=== PATIENT | female | born 1960 | race Caucasian/White ===

== ENCOUNTER 2019-07-08 09:18 | Outpatient (CLI) | payer BC, SELFPAY ==
--- NOTE | ~2019-07-08 | MM_ITS ---
EXAMINATION: MM screening bonnie BI w jaed HISTORY: Screening mammogram TECHNIQUE: Craniocaudal and mediolateral oblique 3-D tomosynthesis images were obtained and synthetic 2-D images were generated. CAD analysis was submitted and interpreted. COMPARISON: 05/28/2018 BREAST PARENCHYMAL COMPOSITION: There are scattered areas of fibroglandular density. FINDINGS: The right breast is stable without evidence for malignancy. There is a new cluster of punct ate nonspecific calcifications upper outer quadrant of the left breast. IMPRESSION: 1. New cluster of punctate left breast calcifications, upper outer quadrant. 2. Magnification views are recommended. BI-RADS Category 0: Incomplete: Needs additional imaging evaluation. Reviewed, dictated and finalized at location A. [employer]
== END 2019-07-08 09:19 | disposition home or self-care (01) ==
LOC: ANHIMG 09:21
PROVIDERS: PCP Family Medicine; Visit Provider Nurse Practitioner
DX: Z12.31 Encounter for screening mammogram for malignant neoplasm of breast (principal); R92.8 Other abnormal and inconclusive findings on diagnostic imaging of breast
CPT/HCPCS: 77063; 77067

== ENCOUNTER 2019-08-04 12:47 | Outpatient (CLI) | payer BC, SELFPAY ==
--- NOTE | ~2019-08-04 | MMUS_ITS ---
EXAMINATION: MM diagnostic mammo unilat LT, US breast LT limited HISTORY: New cluster of punctate left microcalcifications, upper outer quadrant, on 07/08/2019 bilater al digital screening mammogram TECHNIQUE: Additional 3-D ML tomosynthesis images and magnification views of the left breast were per formed and synthetic 2-D images were generated. CAD analysis was submitted and interpreted. High reso lution upper outer quadrant left breast ultrasound was performed. COMPARISON: 07/08/2019 bilateral digital screening mammogram FINDINGS: MAMMOGRAPHIC FINDINGS: There is a suspicious cluster of granular appearing microcalcifications in the upper outer quadrant o f the left breast. ULTRASOUND: There is no evidence of focal abnormal solid or cystic lesion in the vicinity of the suspicious granu lar microcalcifications in the upper outer quadrant of the left breast IMPRESSION: 1. Suspicious grouped granular microcalcifications, upper outer quadrant of left breast 2. Stereotactic biopsy is recommended. BI-RADS category 4, suspicious findings. Dr. Singh telephoned the report to Dr. Klein's office voicemail on 08/04/2019 at 1405 hours. Reviewed, dictated and finalized at location A. IMPRESSION: 1. Suspicious grouped granular microcalcifications, upper outer quadrant of lef t breast 2. Stereotactic biopsy is recommended. BI-RADS category 4, suspicious findings. Dr. Singh telephoned the report to Dr. Klein's office voicemail on 08/04/2019 at 1405 hours.
== END 2019-08-04 12:48 | disposition home or self-care (01) ==
PROVIDERS: PCP Family Medicine; Visit Provider Nurse Practitioner
DX: R92.8 Other abnormal and inconclusive findings on diagnostic imaging of breast (principal)
CPT/HCPCS: 76642; 77065

== ENCOUNTER 2019-08-10 10:08 | Outpatient (CLI) | payer BC, SELFPAY ==
--- NOTE | ~2019-08-10 | MM_ITS ---
MM stereotactic specimen LT DATE: 08/10/2019 11:59 INDICATION: Stereotactic biopsy of upper outer quadrant breast microcalcifications TECHNIQUE: Digital mammographic exposure of stereotactic biopsy specimen tissue COMPARISON: 08/04/2019 diagnostic left digital mammogram FINDINGS: Numerous microcalcifications of interest are present within the specimen tissue. IMPRESSION: Successful stereotactic biopsy yielding multiple microcalcifications of interest Reviewed, dictated and finalized at Location A. Reviewed, dictated and finalized at location B. IMPRESSION: Successful stereotactic biopsy yielding multiple microcalcification s of interest
--- NOTE | ~2019-08-10 | MM_ITS ---
EXAMINATION: MM stereotactic bx LT, Specimen Radiograph, Tissue Marker Clip Placement, Unilateral Tirso mogram DATE: 08/10/2019 11:56 INDICATION: Abnormal mammogram: Suspicious grouped microcalcifications in upper outer quadrant of lef t breast. TECHNIQUE AND FINDINGS: The risks and potential benefits of the procedure were discussed with the patient and written informe d consent was obtained. Timeout procedure was performed. The patient was placed in the prone position on the dedicated stereotactic table with the left breast in craniocaudal compression, and the area o f interest was localized and targeted utilizing digital imaging with stereotaxis. After sterile preparation of the skin, 1% lidocaine was utilized for local anesthesia at the skin pun cture site and 1% lidocaine with epinephrine was utilized for deeper local anesthesia/is about the bi opsy site. A 9G Taketake vacuum assisted biopsy needle was advanced to the level of the calcification o f interest from a cephalad approach utilizing stereotactic guidance and a total of 18 tissue core bio psies were obtained. A specimen radiograph demonstrates that the calcifications of interest are included within the tissue cores. A tissue marker clip was then placed at the biopsy site. A digital mammographic exposure co nfirmed the successful deployment of the biopsy marker. The needle was removed and hemostasis was ac hieved. A sterile bandage was applied. The patient tolerated the procedure well and there is no teresa dence of significant immediate complication. The patient was given verbal as well as written postpro cedural instructions prior to discharge from the department. Tissue cores were submitted to surgical pathology for histologic analysis. A 2-view left unilateral digital mammogram was obtained post procedure, demonstrating the tissue dheeraj er clip in expected position. IMPRESSION: 1. Successful stereotactic biopsy of upper outer quadrant left breast microcalcifications, followed by tissue marker clip placement. Please refer to pathology report for histologic analysis. Reviewed, dictated and finalized at Location A. Reviewed, dictated and finalized at location B. IMPRESSION: 1. Successful stereotactic biopsy of upper outer quadrant left breast microca lcifications, followed by tissue marker clip placement. Please refer to pathol suzy report for histologic analysis.
--- NOTE | ~2019-08-10 | MM_ITS ---
MM post biopsy invasive LT DATE: 08/10/2019 11:58 INDICATION: Post stereotactic biopsy mammogram TECHNIQUE: Digital ML and cc mammographic exposures of the left breast following stereotactic biopsy of upper outer quadrant left breast microcalcifications COMPARISON: 08/04/2019 diagnostic left digital mammogram FINDINGS: A ribbon biopsy marker and mild subcutaneous emphysema are noted in the upper outer quadran t of the left breast. The previously reported microcalcifications are no longer evident. IMPRESSION: Successful removal of microcalcifications from upper outer quadrant of left breast, with deployment of radiopaque biopsy marker Reviewed, dictated and finalized at Location A. Reviewed, dictated and finalized at location B.
== END 2019-08-10 10:09 | disposition home or self-care (01) ==
PROVIDERS: PCP Family Medicine; Visit Provider Family Medicine
DX: N63.21 Unspecified lump in the left breast, upper outer quadrant (principal)
CPT/HCPCS: 19081; 88305; A4648

== ENCOUNTER 2020-02-19 16:11 | Observation (INO) | payer BC, SELFPAY ==
--- NOTE | ~2020-02-19 | XR_ITS ---
EXAMINATION: XR foot RT min 3V EXAM DATE: 02/19/2020 18:07 INDICATION: No known recent injury provided at this time. Pain of the right foot. Edema and erythema started Aris, progressing. History of diabetes. TECHNIQUE: Right foot dorsoplantar, lateral and oblique projections obtained and reviewed. There is no prior study for comparison. FINDINGS: Acute closed posttraumatic comminuted fractures of the bases of the right 2nd, 3rd proximal phalanges, involving the metatarsophalangeal joints. There is angulation to both and partially dislo cated 2nd proximal phalanx. This finding has been indicated, marked on the examination for review, cl inical correlation. There are no bony erosions identified. Small calcaneal spurs. There is no subcutaneous gas. Dustin e edema suspected over the forefoot. There are no radiopaque foreign bodies. IMPRESSION: Acute right 2nd, 3rd proximal phalangeal base intra-articular fractures, angulation. Disp lacement of the 2nd. Reviewed, dictated and finalized at location A. IMPRESSION: Acute right 2nd, 3rd proximal phalangeal base intra-articular fract ures, angulation. Displacement of the 2nd.
--- NOTE | ~2020-02-19 | US_ITS ---
EXAMINATION: US venous doppler LE RT EXAM DATE: 02/19/2020 17:52 INDICATION: Right leg edema. Pain. TECHNIQUE: Multiple grayscale, color flow and Doppler images of the right lower extremity deep venous system were obtained and reviewed. There is no prior study for comparison. FINDINGS: The right common femoral, femoral and profunda veins demonstrate normal color flow, respira tory variation, augmentation and compressibility. Compressibility, color flow confirmed within the r ight popliteal, posterior tibial, peroneal, and greater saphenous veins. IMPRESSION: 1. No right lower extremity deep venous thrombosis. Reviewed, dictated and finalized at location A.
[2020-02-19 16:23] VITALS: BP 149/93; PULSE 110; RESP 18; TEMP 36.2; O2SAT 100
--- NOTE | 2020-02-19 17:56 | ED.SKABFB ---
HPI - Skin/Abscess/Foreign Bdy General Chief complaint: Skin/Abscess/Foreign Body Stated complaint: cellulitis on my right foot Time Seen by Provider: 02/19/20 17:30 Source: patient Mode of arrival: ambulatory Limitations: no limitations History of Present Illness HPI narrative: This is a 59 year old female that presents to the ER for redness and swelling to the right foot x 1 week. Reports she had been doing a lot of walking before this started, but no certain injury noted. Reports she is being treated by her primary for cellulitis. Reports she has finished 1 week of Keflex without relief. Reports that she has also been on clindamycin for the last 2 days. Denies fever, chest pain, or shortness of breath. Related Data Home Medications Medication Instructions Recorded Confirmed cyanocobalamin (vitamin B-12) 1,000 mcg PO DAILY 07/07/19 02/15/20 1,000 mcg capsule Allergies Allergy/AdvReac Type Severity Reaction Status Date / Time No Known Allergies Allergy Verified 02/19/20 16:12 Review of Systems Review of Systems: Narrative: CONSTITUTIONAL: Denies fever CARDIOVASCULAR: Reports edema. Denies chest pain RESPIRATORY: Denies dyspnea. SKIN: Reports erythema NEUROLOGIC: Denies numbness All systems reviewed & are unremarkable except as noted in HPI and below PMFSH Past Medical History Medical History (Updated 02/19/20 @ 20:48 by Dilma Flores PA-C) Anxiety Hypertension Type 2 diabetes mellitus with diabetic neuropathy, without long-term current use of insulin Family History Family History Sibling Diabetes mellitus Acute myocardial infarction Cerebrovascular accident Family history of malignant neoplasm of breast in first degree relative Family history of malignant neoplasm of breast Father Family history of chronic obstructive pulmonary disease, Onset Age: 90 Family history of malignant neoplasm of urinary bladder, Onset Age: 90 Mother Family history of malignant neoplasm of breast in first degree relative, Onset Age: 89 Family history of malignant neoplasm of breast, Onset Age: 89 Social History Social History Smoking status: Never smoker Second hand tobacco smoke exposure: No Alcohol intake: never Gender identity (if verbalized by the patient): Female Exam Narrative: Exam Narrative: GENERAL: Well-appearing, well-nourished, and in no acute distress. HEAD: Normocephalic, atraumatic. EYES: EOMI. CHEST: Clear to auscultation. No respiratory distress. No wheezes rales or rhonchi HEART: Regular rate and rhythm. No murmur heard. Normal peripheral pulses. EXTREMITIES: Normal range of motion. Right foot into the ankle with diffuse edema and erythema, also with bruising. Normal DP pulses. Normal sensation SKIN: Warm, dry, no rash. NEURO: No focal deficits. Alert and oriented x3. PSYCH: Normal mood and affect Course Consultations Consultation #1: Spoke with Dr. Bergman about patient and work-up who will consult Date: 02/19/20 Time: 20:34 Consultation #2: Spoke with hospitalist about patient and work-up who accepts admission Date: 02/19/20 Time: 20:34 Vital Signs Vital signs: Vital Signs Temperature 97.1 F L 02/19/20 16:23 Pulse Rate 110 H 02/19/20 16:23 Respiratory Rate 18 02/19/20 16:23 Blood Pressure 149/93 H 02/19/20 16:23 Pulse Oximetry 100 02/19/20 16:23 Temperature 97.1 F L 02/19/20 16:23 Pulse Rate 110 H 02/19/20 16:23 Respiratory Rate 18 02/19/20 16:23 Blood Pressure 149/93 H 02/19/20 16:23 Pulse Oximetry 100 02/19/20 16:23 MDM - Skin/Abscess/Foreign Bdy MDM Narrative Medical decision making narrative: Patient presents to the ER for redness and swelling to the right foot x 1 week. Reports no known injury or trauma. She has been treated for cellulitis by her primary with Keflex for the last week without relief. She is
[2020-02-19 18:19] LABS: Basophils Percent Auto 0.4 % (0.2-1.2); Eosinophils Absolute Auto 0.1 K/mm3 (0-0.3); Eosinophils Percent Auto 0.7 % (0-4.4); Hematocrit 41.7 % (37.0-47.0); Hemoglobin 14.1 g/dL (12.0-15.0); Immature Granulocyte Absolute 0.03 K/mm3 (0.00-0.031); Immature Granulocyte Percent A 0.3 % (0-0.5); Lymphocytes Absolute Auto 2.51 K/mm3 (0.9-3.2); Lymphocytes Percent Auto 23.2 % (18.3-44.2); Mean Corpuscular HGB Conc 33.8 g/dl (32-36); Mean Corpuscular Hemoglobin 31.1 pg (26-34); Mean Corpuscular Volume 91.9 fl (80-100); Mean Platelet Volume 9.7 fl (7.4-10.4); Monocytes Absolute Auto 0.8 K/mm3 (0.1-0.6); Monocytes Percent Auto 7.7 % (2.6-8.5); Neutrophils Absolute Auto 7.3 K/mm3 (1.3-6.7); Neutrophils Percent Auto 67.7 % (45.5-73.1); Platelet Count Result 328 k/mm3 (150-375); Red Blood Count 4.54 M/mm3 (4.2-5.4); White Blood Count 10.8 K/mm3 (4.5-10.0)
[2020-02-19 18:29] LABS: Prothrombin Time 13.2 Seconds (11.1-14.7)
[2020-02-19 18:30] LABS: Partial Thromboplastin Time 27.6 SECONDS (22.3-36.8)
[2020-02-19 18:34] LABS: Anion Gap 8 mmol/L (8-16); Blood Urea Nitrogen 16 mg/dL (7-17); CRP 8.7 mg/dL (<1.0); Carbon Dioxide 32 mmol/L (22-30); Chloride 97 mmol/L (98-107); Estimated CRCL calculation 60 ml/min; Estimated Glomerular Filt Rate > 60; Glucose 155 mg/dL (65-105); Potassium 4.3 mmol/L (3.4-5.0); Sodium 137 mmol/L (137-145)
[2020-02-19 19:09] LABS: Erythrocyte Sedimentation Rate 87 mm/hr (0-20)
--- NOTE | 2020-02-19 20:55 | PM.IMHP ---
H&P: HPI History of Present Illness Date/Time: 02/19/20 20:55 Chief complaint: Right foot cellulitis Narrative: This is a 59 year old Diabetic female with known HTN who presented to the hospital with a complaint of redness, swelling, and tenderness of the top of her right foot. She denies any trauma to her foot and believes that this started from walking alot. The patient was treated with one week of cephalexin PO which did not improve her redness. She was started on clindamycin 2 days ago and today decided to come to the ER as her foot was not improving. She reports that the redness has now extended to affect her right ankle as well. She denies any associated symptoms such as fevers, chills, cough, nausea, vomiting, chest pain, abdominal pain, dysuria, hematuria, diarrhea or rectal bleeding. The patient was evaluated in the ER and LE doppler US was performed and ruled out acute DVT. Foot xray demonstrated acute right 2nd, 3rd proximal phalangeal base intra-articular fractures, angulation. Displacement of the 2nd. The patient has been started on IV antibiotics and Ortho has been consulted by ER provider. No other complaints. 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 Hypertension Type 2 diabetes mellitus with diabetic neuropathy, without long-term current use of insulin Family History Family History Sibling Diabetes mellitus Acute myocardial infarction Cerebrovascular accident Family history of malignant neoplasm of breast in first degree relative Family history of malignant neoplasm of breast Father Family history of chronic obstructive pulmonary disease, Onset Age: 90 Family history of malignant neoplasm of urinary bladder, Onset Age: 90 Mother Family history of malignant neoplasm of breast in first degree relative, Onset Age: 89 Family history of malignant neoplasm of breast, Onset Age: 89 Social History Social History Smoking status: Never smoker Second hand tobacco smoke exposure: No Alcohol intake: never Gender identity (if verbalized by the patient): Female Spiritual care concerns: No Meds Home Medications and Allergies Home Medications Medication Instructions Recorded Confirmed Type blood sugar diagnostic #100 each 05/27/19 02/19/20 Rx cyanocobalamin (vitamin B-12) 1,000 mcg PO DAILY 07/07/19 02/19/20 History 1,000 mcg capsule losartan 100 mg tablet 100 mg PO DAILY #90 tablet 07/17/19 02/19/20 Rx cholecalciferol (vitamin D3) 25 See Rx Instructions .ROUTE 10/27/19 02/19/20 Rx mcg (1,000 unit) tablet .COMPLEX #90 tablet bupropion HCl 150 mg 24 hr tablet, 300 mg PO QAM #60 tablet 11/26/19 02/19/20 Rx extended release hydrochlorothiazide 12.5 mg tablet See Rx Instructions .ROUTE 12/29/19 02/19/20 Rx .COMPLEX #90 tablet metformin 500 mg tablet See Rx Instructions .ROUTE 01/25/20 02/19/20 Rx .COMPLEX #270 tablet Allergies Allergy/AdvReac Type Severity Reaction Status Date / Time No Known Allergies Allergy Verified 02/19/20 16:12 Vital Signs Vital Signs - 24 hr 02/19/20 16:23 Temperature 36.2 C L Pulse Rate 110 H Respiratory Rate 18 Blood Pressure 149/93 H Pulse Oximetry 100 Exam Const: General: cooperative, no acute distress, alert and awake Nutritional Appearance: well nourished Orientation/consciousness: patient oriented x3 HENMT: Head: normal to inspection General nose exam: Normal external nose present Face and sinus: normal facial exam Mouth: Yes Normal oral and palatal mucosa present and Yes oropharynx normal Eyes: Pupils: Equal, round and reactive pupils present EOM:
--- NOTE | 2020-02-19 22:03 | ADMGEN ---
This patient, Velma Tello, was admitted to Medical Room 349-01. Patient/family oriented to hospital policies and general routines including ID bracelet, bed and alarms, visiting hours, pain management, procedures, bathroom and other care routines, personal items, smoking policy, room service/diet, and visiting hours. Valuables list has been completed. Information on how to activate the Rapid Response Team has been discussed. Patient/Family are encouraged to report perceived risks to care and to ask questions if they do not understand what they are told or what they should do.
[2020-02-19 22:08] VITALS: BMI 26.4
[2020-02-19 22:15] VITALS: BMI 27.2
[2020-02-19 22:16] VITALS: BP 140/81; PULSE 109; RESP 16; TEMP 36.9; O2SAT 99
[2020-02-19 22:20] VITALS: BP 143/81; PULSE 100; RESP 18; O2SAT 97
[2020-02-19 22:25] VITALS: BP 143/81; PULSE 100; RESP 18; O2SAT 97
[2020-02-19] MEDS: HYDROcodone/acetaminophen (*CRX) 5-325 MG TABLET 1 TAB PO (23:23)
--- NOTE | 2020-02-19 23:36 | PC.NURSE ---
Phone call to pharmacy at this time. Was not able to find patient in med pyxis. Was told by pharmacist there is a hospital wide glitch that is going on where the patient that is being transferred from the ED they do not get transferred in the pyxis. Pharmacist said to override prn meds to save time with having to call for everything to be sent up through the tubes.
[2020-02-20 06:08] LABS: Basophils Percent Auto 0.5 % (0.2-1.2); Eosinophils Absolute Auto 0.1 K/mm3 (0-0.3); Eosinophils Percent Auto 1.6 % (0-4.4); Hematocrit 39.7 % (37.0-47.0); Hemoglobin 13.3 g/dL (12.0-15.0); Immature Granulocyte Absolute 0.03 K/mm3 (0.00-0.031); Immature Granulocyte Percent A 0.4 % (0-0.5); Lymphocytes Absolute Auto 2.46 K/mm3 (0.9-3.2); Lymphocytes Percent Auto 31.9 % (18.3-44.2); Mean Corpuscular HGB Conc 33.5 g/dl (32-36); Mean Corpuscular Hemoglobin 31.4 pg (26-34); Mean Corpuscular Volume 93.9 fl (80-100); Mean Platelet Volume 9.8 fl (7.4-10.4); Monocytes Absolute Auto 0.8 K/mm3 (0.1-0.6); Monocytes Percent Auto 10.4 % (2.6-8.5); Neutrophils Absolute Auto 4.3 K/mm3 (1.3-6.7); Neutrophils Percent Auto 55.2 % (45.5-73.1); Platelet Count Result 283 k/mm3 (150-375); Red Blood Count 4.23 M/mm3 (4.2-5.4); White Blood Count 7.7 K/mm3 (4.5-10.0)
[2020-02-20 06:36] VITALS: BP 126/75; PULSE 84; RESP 18; TEMP 36.4; O2SAT 100
[2020-02-20 06:38] LABS: Anion Gap 6 mmol/L (8-16); Blood Urea Nitrogen 16 mg/dL (7-17); Calcium 9.5 mg/dL (8.4-10.2); Carbon Dioxide 34 mmol/L (22-30); Chloride 99 mmol/L (98-107); Estimated CRCL calculation 60 ml/min; Estimated Glomerular Filt Rate > 60; Glucose 148 mg/dL (65-105); Potassium 4.1 mmol/L (3.4-5.0); Sodium 139 mmol/L (137-145)
[2020-02-20 07:57] LABS: Glucose Point of Care 121 (65-105)
--- NOTE | 2020-02-20 08:51 | PM.CNOR ---
Assessment and Plan Assessment and plan (1) Charcot foot due to diabetes mellitus: Code(s): E11.610 - Type 2 diabetes mellitus with diabetic neuropathic arthropathy Status: Acute Assessment and Plan: 59-year-old female with what appears to be an acute Charcot arthropathy involving the right 2nd and 3rd MTP joints. CAM walker boot has been ordered. I spoke with Dr. Orona by telephone who has graciously agreed to see her in follow-up in the clinic as an outpatient. Thank for the consultation. History of Present Illness HPI Consult date: 02/20/20 Consult reason: fracture Chief complaint: Right foot cellulitis Narrative: 59-year-old female who was asked to see for her right foot. She has redness and swelling in the foot. She over the past month had started a walking program to help better control her diabetes. She has had her A1c was in the six is where as it had been normally running in the 5s. To help get control of her weight she started a walking program in increased her steppage from 10,000 steps today to about 17,000 steps today and after she increased she started noticing the swelling in her foot. She initiate some redness and was placed on Keflex and clindamycin when nothing seemed to help she came to the ER yesterday. She is currently on IV antibiotics. She is not having that much pain with the fractures are identified on x-ray but does have irritability in the skin with erythema is. He has had a normal white count and is afebrile. She notes that she was diagnosed with diabetes 18 years ago and in the past her control has not been so good with A1Cs up in the 9s previously. Review of Systems Review of Systems: All systems reviewed & are unremarkable except as noted in HPI and below [facility] Past Medical History Medical History (Updated 02/20/20 @ 08:59 by Nishant Bergman MD) Anxiety Charcot foot due to diabetes mellitus right 2nd and 3rd MTP joints Hypertension Type 2 diabetes mellitus with diabetic neuropathy, without long-term current use of insulin Family History Family History Sibling Diabetes mellitus Acute myocardial infarction Cerebrovascular accident Family history of malignant neoplasm of breast in first degree relative Family history of malignant neoplasm of breast Father Family history of chronic obstructive pulmonary disease, Onset Age: 90 Family history of malignant neoplasm of urinary bladder, Onset Age: 90 Mother Family history of malignant neoplasm of breast in first degree relative, Onset Age: 89 Family history of malignant neoplasm of breast, Onset Age: 89 Social History Social History Smoking status: Never smoker Second hand tobacco smoke exposure: No Alcohol intake: never Gender identity (if verbalized by the patient): Female Spiritual care concerns: No Meds Home Medications and Allergies Home Medications Medication Instructions Recorded Confirmed Type blood sugar diagnostic #100 each 05/27/19 02/19/20 Rx cyanocobalamin (vitamin B-12) 1,000 mcg PO DAILY 07/07/19 02/19/20 History 1,000 mcg capsule losartan 100 mg tablet 100 mg PO DAILY #90 tablet 07/17/19 02/19/20 Rx cholecalciferol (vitamin D3) 25 See Rx Instructions .ROUTE 10/27/19 02/19/20 Rx mcg (1,000 unit) tablet .COMPLEX #90 tablet bupropion HCl 150 mg 24 hr tablet, 300 mg PO QAM #60 tablet 11/26/19 02/19/20 Rx extended release hydrochlorothiazide 12.5 mg tablet See Rx Instructions .ROUTE 12/29/19 02/19/20 Rx .COMPLEX #90 tablet metformin 500 mg tablet See Rx Instructions .ROUTE 01/25/20 02/19/20 Rx .COMPLEX #270 tablet Allergies Allergy/AdvReac Type Severity Reaction Status Date / Time No Known Allergies Allergy Verified 02/19/20 16:12 Vital Signs Vital Signs - 24 hr 02/19/20 16:23 02/19/20 22:16 02/19/20 22:20 Temperature 97
[2020-02-20] MEDS: ENOXAPARIN 40 MG/0.4 ML SYRINGE SUB-Q (09:21)
[2020-02-20] MEDS: buPROPion HCL XL (24 HR) 150 MG TABCR 300 MG PO (10:15)
[2020-02-20] MEDS: CYANOCOBALAMIN 1,000 MCG TABLET 1000 MCG PO (10:16)
[2020-02-20] MEDS: CHOLECALCIFEROL 1,000 UNITS TABLET 1000 UNITS PO (10:16)
[2020-02-20] MEDS: LOSARTAN POTASSIUM 100 MG TABLET PO (10:16)
[2020-02-20] MEDS: hydroCHLOROthiazide 12.5 MG CAPSULE PO (10:16)
[2020-02-20 11:37] LABS: Hemoglobin A1C 6.3 % (<5.7)
--- NOTE | 2020-02-20 11:59 | PM.DS ---
DS: Admitting Diagnosis Admitting Diagnosis Admitting Diagnosis: Right foot cellulitis DS: Discharge Diagnosis Discharge Diagnosis (1) Charcot foot due to diabetes mellitus: Code(s): E11.610 - Type 2 diabetes mellitus with diabetic neuropathic arthropathy Status: Acute Assessment and Plan: Initially treated as cellulitis of right foot with vanc and imipenem from the ED. Dr. Bergman (orthopedic surgery) consulted from ED and evaluated patient; given xray findings, history provided, and DMII history, this is felt to be Charcot foot. Dr. Bergman discussed case with Dr. Orona who agreed to see patient as an outpatient referral; recommended no antibiotics, thus these were discontinued. Patient sent home with a boot. PT to evaluate patient. Patient shows no s/sx of systemic infection with normal WBC and afebrile and stable VS. Discharge home today with boot F/u with Dr. Orona as an outpatient D/c antibiotics per Ortho recommendations (2) Fractures: Code(s): T07.XXXA - Unspecified multiple injuries, initial encounter Status: Acute Assessment and Plan: Acute right 2nd, 3rd proximal phalangeal base intra-articular fractures, angulation. Ortho has been consulted by ER provider. Sherwood to be Charcot foot. Please see above a/p (3) Type 2 diabetes mellitus with diabetic neuropathy, without long-term current use of insulin: Code(s): E11.40 - Type 2 diabetes mellitus with diabetic neuropathy, unspecified Status: Chronic Assessment and Plan: A1c 6.3 Accuchecks, SSI coverage, Hypoglycemic protocol during stay Continue metformin. Congratulated patient on increased diet and exercise to lose weight (4) Hypertension: Qualifiers: Hypertension type: unspecified Qualified Code(s): I10 - Essential (primary) hypertension Code(s): I10 - Essential (primary) hypertension Status: Chronic Assessment and Plan: BP 120s sys today Continue losartan and HCTz. DS: Summary Hospital Course Reason for hospitalization: Charcot foot due to DM Hospital Course: Patient is a 59 yo Diabetic female with known HTN who presented to the hospital with a complaint of redness, swelling, and tenderness of the top of her right foot. While in the ED, patient was found to have acute right 2nd, 3rd proximal phalangeal base intra-articular fractures, angulation and displacement of the 2nd on right foot xray. Initially, cellulitis was suspected and was placed on IV vancomycin and a carbapenem. Dr. Bergman (Orthopedic Surgery) was consulted from the ED for further evaluation. Patient admitted under this setting. Please see H&P for further details. Presenting VS: Temp Pulse Resp BP Pulse Ox 97.1 F L 110 H 18 149/93 H 100 02/19/20 16:23 02/19/20 16:23 02/19/20 16:23 02/19/20 16:23 02/19/20 16:23 Presenting Pertinent labs: WBC 10.8k, A1c 6.3, lactic acid 1.0. CRP 8.7. CBC, coag, and chemistry otherwise unremarkable Micro: BCx shows NGTD x 2 after 2 days Imaging: Venous Doppler Study 02/19/20 17:57 IMPRESSION: 1. No right lower extremity deep venous thrombosis Foot X-Ray 02/19/20 18:12 IMPRESSION: Acute right 2nd, 3rd proximal phalangeal base intra-articular fractures, angulation. Displacement of the 2nd. ECG: none Patient was admitted to the hospitalist service for further evaluation. Patient evaluated by Dr. Bergman on 02/19 who advised that this was likely Charcot foot and skin changes likely secondary to same. He recommended a boot for ambulation and establishing for Dr. Orona as an outpatient; this was discussed between Dr. Bergman and Dr. Orona. Dr. Bergman recommended continued offloading with boot with ambulation and recommended no antibiotics. Plan was for patient to establish Dr. Orona, as stated above, and to follow up
[2020-02-20 12:26] LABS: Glucose Point of Care 144 (65-105)
== END 2020-02-20 14:37 | disposition home or self-care (01) ==
LOC: ANHED 20:16 → ANH2MED 20:37 → ANH3MED 20:43
PROVIDERS: Family Medicine; Physician Assistant; Admitting Provider Internal Medicine; Emergency Provider Family Medicine; PCP Family Medicine; Visit Provider Internal Medicine
DX: L03.115 Cellulitis of right lower limb (principal); S92.511A Displaced fracture of proximal phalanx of right lesser toe(s), initial encounter for closed fracture; S93.334A Other dislocation of right foot, initial encounter; A52.16 Charcot's arthropathy (tabetic); E11.610 Type 2 diabetes mellitus with diabetic neuropathic arthropathy; F41.9 Anxiety disorder, unspecified; I10 Essential (primary) hypertension; M79.89 Other specified soft tissue disorders; X58.XXXA Exposure to other specified factors, initial encounter
CPT/HCPCS: 36415; 73630; 80048; 83036; 83605; 85025; 85610; 85652; 85730; 86140; 87040; 93971; 96365; 96367; 96372; 97161; 99285; A9270; G0378; J0743; J1650; J3370; L2116

== ENCOUNTER 2021-01-26 17:01 | Outpatient (CLI) | payer OTHER, SELFPAY ==
--- NOTE | ~2021-01-26 | MM_ITS ---
EXAMINATION: MM screening bonnie BI w jade HISTORY: Screening TECHNIQUE: Craniocaudal and mediolateral oblique 3-D tomosynthesis images were obtained and synthetic 2-D images were generated. CAD analysis was submitted and interpreted. COMPARISON: Comparison to multiple prior studies sequentially, with oldest reviewed study dated 05/28. BREAST PARENCHYMAL COMPOSITION: Breast composed of scattered areas of fibroglandular density. FINDINGS: . There are developing bilateral breast asymmetries centered in the upper outer quadrant of the right breast and lower central aspect of the left breast. IMPRESSION: 1. Developing bilateral breast asymmetries. 2. Additional mammographic views and possible breast ultrasound are recommended. BI-RADS Category 0: Incomplete: Needs additional imaging evaluation. Reviewed, dictated and finalized at location A. IMPRESSION: 1. Developing bilateral breast asymmetries. 2. Additional mammographic views and possible breast ultrasound are recommended . BI-RADS Category 0: Incomplete: Needs additional imaging evaluation.
== END 2021-01-26 17:02 | disposition home or self-care (01) ==
LOC: ANHIMG 17:04
PROVIDERS: PCP Nurse Practitioner; Visit Provider Family Medicine
DX: Z12.31 Encounter for screening mammogram for malignant neoplasm of breast (principal); R92.8 Other abnormal and inconclusive findings on diagnostic imaging of breast
CPT/HCPCS: 77063; 77067

== ENCOUNTER 2021-03-30 11:52 | Outpatient (CLI) | payer OTHER, SELFPAY ==
--- NOTE | ~2021-03-30 | MMUS_ITS ---
EXAMINATION: MM diagnostic bonnie BI w jade, US breast LT limited HISTORY: Bilateral breast asymmetries on screening mammogram TECHNIQUE: Additional 3-D tomosynthesis images of the breasts were performed and synthetic 2-D images were generated. CAD analysis was submitted and interpreted. High resolution limited left breast ultr asound was performed. COMPARISON: 01/26/2021, 08/04/2019, 07/08/2019, 05/28/2018 BREAST PARENCHYMAL COMPOSITION: There are scattered areas of fibroglandular density. FINDINGS: MAMMOGRAPHIC FINDINGS: There is a return to baseline fibroglandular appearance with spot compression of the breasts in the a reas questioned on screening mammogram. ULTRASOUND: There is no evidence of focal abnormal solid or cystic mass in the vicinity of the the mammographic f inding in question in the left breast. IMPRESSION: 1. No mammographic or sonographic evidence of malignancy. 2. Recommend routine screening mammography in one year. BI-RADS Category 1: Negative Reviewed, dictated and finalized at location A. ITY CONTROL PROJECTIONIST IMPRESSION: 1. No mammographic or sonographic evidence of malignancy. 2. Recommend routine screening mammography in one year. BI-RADS Category 1: Negative
== END 2021-03-30 11:53 | disposition home or self-care (01) ==
LOC: ANHIMG 11:53
PROVIDERS: PCP Nurse Practitioner; Visit Provider Nurse Practitioner
DX: R92.8 Other abnormal and inconclusive findings on diagnostic imaging of breast (principal)
CPT/HCPCS: 76642; 77062; 77066; G0279

== ENCOUNTER 2021-06-19 00:36 | Day surgery (SDC) | payer OTHER, SELFPAY ==
[2021-06-07 12:14] VITALS: BMI 27.4
[2021-06-19 06:50] VITALS: BP 157/84; PULSE 94; RESP 18; TEMP 35.9; O2SAT 97
--- NOTE | 2021-06-19 06:58 | WPDANESEPPF ---
Anes - Initial Pre Proc Eval Procedure: Operation Date: 06/19/21 08:00 Proposed Procedures p Screening Colonoscopy - Sage Barr MD Date/Time: 06/19/21 06:58 Surgeon: Sage Barr MD Pre Op Diagnosis: neoplasm screening Patient Data Age: 60 Gender: F Height: 1.7 m Weight: 84.4 kg Last Vital Signs Temp 35.9 C L 06/19/21 06:50 Pulse 94 06/19/21 06:50 Resp 18 06/19/21 06:50 BP 157/84 H 06/19/21 06:50 Pulse Ox 97 06/19/21 06:50 Allergies Allergy/AdvReac Type Severity Reaction Status Date / Time No Known Allergies Allergy Verified 06/19/21 06:49 Home Medications Medication Instructions Recorded Confirmed Type blood sugar diagnostic #100 each 05/27/19 06/19/21 Rx cyanocobalamin (vitamin B-12) 1,000 mcg PO DAILY 07/07/19 06/19/21 History 1,000 mcg capsule cholecalciferol (vitamin D3) 25 See Rx Instructions .ROUTE 10/27/19 06/19/21 Rx mcg (1,000 unit) tablet .COMPLEX #90 tablet metformin 500 mg tablet See Rx Instructions .ROUTE 11/29/20 06/19/21 Rx .COMPLEX #810 tablet bupropion HCl 150 mg 24 hr tablet, See Rx Instructions .ROUTE 03/16/21 06/19/21 Rx extended release .COMPLEX #180 tablet losartan 100 mg tablet 100 mg PO DAILY #90 tablet 04/13/21 06/19/21 Rx hydrochlorothiazide 12.5 mg tablet 12.5 mg PO DAILY #90 tablet 05/03/21 06/19/21 Rx Patient hx anesthesia problems: none Family hx anesthesia problems: none Results Review: All pre-operative results and documents have been reviewed as part of the pre-operative evaluation. 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 Degenerative arthritis of left knee Hypertension Neuropathy in diabetes Type 2 diabetes mellitus with diabetic neuropathy, without long-term current use of insulin Vitamin B12 deficiency Vitamin D deficiency Surgical History Surgical History History of Achilles tendon repair History of medial meniscus repair of left knee Family History Family History Sibling Diabetes mellitus Acute myocardial infarction Cerebrovascular accident Family history of malignant neoplasm of breast in first degree relative Family history of malignant neoplasm of breast Father Family history of chronic obstructive pulmonary disease, Onset Age: 90 Family history of malignant neoplasm of urinary bladder, Onset Age: 90 Mother Family history of malignant neoplasm of breast in first degree relative, Onset Age: 89 Family history of malignant neoplasm of breast, Onset Age: 89 Other Heart disease Hypertension Social History Social History Smoking status: Never smoker Second hand tobacco smoke exposure: No Alcohol intake: current Alcohol use details: rare/occasional use Substance use: never Substance use type: does not use Living arrangements: with friend(s) Gender identity (if verbalized by the patient): Female Spiritual care concerns: No Anes - Eval Final PreProcedure Day of Procedure 06/19/21 06:58 Patient weight: overweight Heart: regular rate and rhythm Lungs: clear to auscultation and normal air movement Airway: Mallampati scale class II Neurological: alert and oriented Last oral intake: >/= 8 hours ASA classification: III Emergent: no Anesthetic plan: proceed Anesthesia type and monitoring: general GIVS and standard monitoring Results Review: All pre-operative results and documents have been reviewed as part of the pre-operative evaluation. Informed Consent: The patient's anesthetic plan and its attendant risks and benefits were discussed with the patient/family/POA. Questions were solicited and answers provided to the satisfaction of the patient/family/POA.
[2021-06-19] MEDS: LACTATED RINGERS 1,000 ML 150 ML IV CONT (07:02)
[2021-06-19 07:09] LABS: Glucose Point of Care 221 mg/dl (65-105)
--- NOTE | 2021-06-19 07:23 | WPDGICN ---
Assessment and Plan Assessment and plan (1) Encounter for screening colonoscopy: Code(s): Z12.11 - Encounter for screening for malignant neoplasm of colon Status: Acute Assessment and Plan: Patient presents for screening colonoscopy. She appears to be at average risk for colon polyps. Further recommendations will be given after endoscopy. GI Consult Note Consult date/time: 06/19/21 07:23 HPI: Velma Tello is a 60 year old female Presents for screening colonoscopy. Her current weight appetite bowel movements are normal. She denies abdominal pain. She has had no bleeding. Family history is noncontributory. 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 Degenerative arthritis of left knee Hypertension Neuropathy in diabetes Type 2 diabetes mellitus with diabetic neuropathy, without long-term current use of insulin Vitamin B12 deficiency Vitamin D deficiency Surgical History Surgical History History of Achilles tendon repair History of medial meniscus repair of left knee Family History Family History Sibling Diabetes mellitus Acute myocardial infarction Cerebrovascular accident Family history of malignant neoplasm of breast in first degree relative Family history of malignant neoplasm of breast Father Family history of chronic obstructive pulmonary disease, Onset Age: 90 Family history of malignant neoplasm of urinary bladder, Onset Age: 90 Mother Family history of malignant neoplasm of breast in first degree relative, Onset Age: 89 Family history of malignant neoplasm of breast, Onset Age: 89 Other Heart disease Hypertension Social History Social History Smoking status: Never smoker Second hand tobacco smoke exposure: No Alcohol intake: current Alcohol use details: rare/occasional use Substance use: never Substance use type: does not use Living arrangements: with friend(s) Gender identity (if verbalized by the patient): Female Spiritual care concerns: No Meds Home Medications and Allergies Home Medications Medication Instructions Recorded Confirmed Type blood sugar diagnostic #100 each 05/27/19 06/19/21 Rx cyanocobalamin (vitamin B-12) 1,000 mcg PO DAILY 07/07/19 06/19/21 History 1,000 mcg capsule cholecalciferol (vitamin D3) 25 See Rx Instructions .ROUTE 10/27/19 06/19/21 Rx mcg (1,000 unit) tablet .COMPLEX #90 tablet metformin 500 mg tablet See Rx Instructions .ROUTE 11/29/20 06/19/21 Rx .COMPLEX #810 tablet bupropion HCl 150 mg 24 hr tablet, See Rx Instructions .ROUTE 03/16/21 06/19/21 Rx extended release .COMPLEX #180 tablet losartan 100 mg tablet 100 mg PO DAILY #90 tablet 04/13/21 06/19/21 Rx hydrochlorothiazide 12.5 mg tablet 12.5 mg PO DAILY #90 tablet 05/03/21 06/19/21 Rx Allergies Allergy/AdvReac Type Severity Reaction Status Date / Time No Known Allergies Allergy Verified 06/19/21 06:49 Vital Signs Vital Signs - 24 hr 06/19/21 06:50 Temperature 96.6 F L Pulse Rate 94 Respiratory Rate 18 Blood Pressure 157/84 H Pulse Oximetry 97 Exam Narrative: Physical exam reveals patient be alert. Vital signs stable. HEENT exam is unremarkable. Patient is anicteric. Lungs are clear to auscultation and percussion. Heart is without murmur or extra sounds. Abdominal exam bowel sounds are present soft nontender with no organomegaly. Digital external rectal exam is normal.
[2021-06-19 08:12] VITALS: BP 114/89; PULSE 85; RESP 27; O2SAT 99
[2021-06-19 08:22] VITALS: BP 126/85; BP 133/75; PULSE 87; PULSE 88; RESP 21; O2SAT 98; O2SAT 99
== END 2021-06-19 08:38 | disposition home or self-care (01) ==
PROVIDERS: PCP Nurse Practitioner; Visit Provider Internal Medicine Gastroenterology
PROC: 0DJD8ZZ Inspection of Lower Intestinal Tract, Via Natural or Artificial Opening Endoscopic (ICD-10-PCS; CPT 45378; principal; 2021-06-19 08:00)
DX: Z12.11 Encounter for screening for malignant neoplasm of colon (principal); D12.2 Benign neoplasm of ascending colon; K64.8 Other hemorrhoids; I10 Essential (primary) hypertension; E11.40 Type 2 diabetes mellitus with diabetic neuropathy, unspecified; E11.610 Type 2 diabetes mellitus with diabetic neuropathic arthropathy; E55.9 Vitamin D deficiency, unspecified; E53.8 Deficiency of other specified B group vitamins; F41.9 Anxiety disorder, unspecified; Z79.84 Long term (current) use of oral hypoglycemic drugs
CPT/HCPCS: 45385; 82948; 88305; J2704; J7120

== ENCOUNTER 2022-05-23 08:14 | Outpatient (CLI) | payer OTHER, SELFPAY ==
--- NOTE | ~2022-05-23 | MM_ITS ---
EXAMINATION: MM screening bonnie BI w jade HISTORY: Screening mammogram TECHNIQUE: Craniocaudal and mediolateral oblique 3-D tomosynthesis images were obtained and synthetic 2-D images were generated. CAD analysis was submitted and interpreted. COMPARISON: 03/30/2021 diagnostic bilateral mammogram and limited left breast ultrasound 01/26/2021 bilateral screening mammogram 07/31/2019 diagnostic left mammogram and limited left breast ultrasound 07/08/2019, 05/28/2018 bilateral screening mammogram examinations BREAST PARENCHYMAL COMPOSITION: There are scattered areas of fibroglandular density. FINDINGS: There is a biopsy marker in the outer mid left breast; history of prior benign left breast biopsy. Stable fibroglandular asymmetry. Scattered bilateral benign calcifications. There is no evidence of s uspicious mass, calcification, or architectural distortion to suggest malignancy in either breast. Th ere has been no suspicious interval change. IMPRESSION: 1. No mammographic evidence of malignancy. 2. Recommend routine screening mammography in one year. BI-RADS Category 2: Benign finding(s). Reviewed, dictated and finalized at location A. GE LICENSED PRACTICAL NURSE
== END 2022-05-23 08:15 | disposition home or self-care (01) ==
LOC: ANHIMG 08:21
DX: Z12.31 Encounter for screening mammogram for malignant neoplasm of breast (principal)
CPT/HCPCS: 77063; 77067

== ENCOUNTER 2022-06-23 09:39 | Outpatient (CLI) | payer OTHER, SELFPAY ==
[2022-06-23 10:16] LABS: Anion Gap 8 mmol/L (8-16); Blood Urea Nitrogen 14 mg/dL (7-17); Carbon Dioxide 29 mmol/L (22-30); Chloride 98 mmol/L (98-107); Estimated Glomerular Filt Rate 56; Glucose 244 mg/dL (65-110); Sodium 135 mmol/L (137-145)
== END 2022-06-23 09:40 | disposition home or self-care (01) ==
DX: R93.1 Abnormal findings on diagnostic imaging of heart and coronary circulation (principal)
CPT/HCPCS: 36415; 80048

== ENCOUNTER 2022-09-06 09:45 | Outpatient (RCR) | payer OTHER, SELFPAY | END 2022-12-03 10:21 | disposition home or self-care (01) | LOC: ANHCPREHAB 09:45 | DX: Z95.1 Presence of aortocoronary bypass graft (principal) | CPT/HCPCS: 93798 ==

== ENCOUNTER 2023-06-21 09:00 | Outpatient (CLI) | payer OTHER, SELFPAY ==
--- NOTE | ~2023-06-21 | MM_ITS ---
EXAMINATION: MM screening bonnie BI w jade HISTORY: Screening mammogram TECHNIQUE: Craniocaudal and mediolateral oblique 3-D tomosynthesis images were obtained and synthetic 2-D images were generated. CAD analysis was submitted and interpreted. COMPARISON: 05/23/2022 bilateral screening mammogram 03/30/2021 bilateral diagnostic mammography and limited left breast ultrasound 01/26/2021 bilateral screening mammogram BREAST PARENCHYMAL COMPOSITION: The breasts are heterogeneously dense, which may obscure small masses . FINDINGS: Biopsy marker on the left; history of prior benign left stereotactic breast biopsy. Stable mild fibroglandular asymmetry. Scattered bilateral benign calcifications. There is no evidence of roger picious mass, calcification, or architectural distortion to suggest malignancy in either breast. Ther e has been no suspicious interval change. IMPRESSION: 1. No mammographic evidence of malignancy. 2. Recommend routine screening mammography in one year. BI-RADS Category 2: Benign finding(s). Reviewed, dictated and finalized at location A. E WRECKER
== END 2023-06-21 09:01 | disposition home or self-care (01) ==
DX: Z12.31 Encounter for screening mammogram for malignant neoplasm of breast (principal)
CPT/HCPCS: 77063; 77067

== ENCOUNTER 2024-06-24 14:24 | Outpatient (CLI) | payer OTHER, SELFPAY ==
--- NOTE | ~2024-06-24 | MM_ITS ---
EXAMINATION: MM screening bonnie BI w jade HISTORY: Screening TECHNIQUE: Craniocaudal and mediolateral oblique 3-D tomosynthesis images were obtained and synthetic 2-D images were generated. CAD analysis was submitted and interpreted. COMPARISON: Comparison to multiple prior studies sequentially, with oldest reviewed study dated 01/26. BREAST PARENCHYMAL COMPOSITION: Dense: The breasts are heterogeneously dense, which may obscure small masses FINDINGS: There is no evidence of suspicious mass, calcification, or architectural distortion to sugg est malignancy in either breast. There has been no suspicious interval change. IMPRESSION: 1. No mammographic evidence of malignancy. 2. Recommend routine screening mammography in one year. BI-RADS Category 1: Negative Reviewed, dictated and finalized at location B. H UP WORKER
--- OUTSIDE RECORDS SUMMARY | 2024-06-24 14:31 | XMS_ITS | Encounter Summary ---
Author Organization [facility] Address [address] [place] [address] Care Team Providers Care Feed Research Aide Name Role Phone Vivienne Baker MD Primary Care Provider [phone] Adriana Hill MD Unavailable Unavailabl e David Craven MD Unavailable [phone] Carol Aguilera MD Unavailable Encounter Details Date Type Department Care Team (Late st Contact Info) Description 08/06/2022 Agorafy Message Enc [facility] [facility] eld [address] [place] [address] Adriana Hill MD Labs Social History Tobacco Use Types Packs/Day Years Used Date Smoking Tobacco: Never Smokeless Tobacco: Never Alcohol Use Standard Drinks/Week Comments Yes 0 (1 standard drink = 0.6 oz pur e alcohol) 1 to 2 drinks per week Humiliation, Afraid, Rape, and Kick questionnair e Answer Date Recorded Within the last year, have y ou been afraid of your partner or ex-partner? No 07/05/2022 Within the last year, have y ou been humiliated or emotionally abused in other ways by your partner or ex-partner? No Within the last year, have y ou been kicked, hit, slapped, or otherwise physically hurt by your partner or ex-partner? No 07/05/2022 Within the last year, have y ou been raped or forced to have any kind of sexual activity by your partner or ex-partner? No 07/05/2022 Overall Financial Resource Strain (CARDIA) Answe r Date Recorded How hard is it for you to pa y for the very basics like food, housing, medical care, and heating? Not hard at all 07/05/2022 Hunger Vital Sign Answer Date Recorded Within the past 12 months, y ou worried that your food would run out before you got the money to buy more. Never true 07/05/19 Within the past 12 months, t he food you bought just didn't last and you didn't have money to get more. Never true 07/05/2022 PRAPARE - Transportation Answer Date Re corded In the past 12 months, has l ack of transportation kept you from medical appointments or from getting medications? No 06/14 In the past 12 months, has l ack of transportation kept you from meetings, work, or from getting things needed for daily living? No 07/05/2022 Housing Stability Vital Sign Answer Gerry e Recorded In the last 12 months, was t here a time when you were not able to pay the mortgage or rent on time? No 07/05/2022 In the last 12 months, how many places have you lived? 1 07/05/2022 In the last 12 months, was t here a time when you did not have a steady place to sleep or slept in a mcc (including now)? No 07/05/2022 Comments Unknown Sex and Gender Information Value Date Recorded Sex Assigned at Female 06/15/2024 1:38 PM ELECTRONIC TECHNICIAN Legal Sex Female 9:57 AM CDT Gender Identity Not on file Sexual Orientation Not on file COVID-19 Exposure Response Date Recorded In the last 10 days, have yo u been in contact with someone who was confirmed or suspected to have Coronavirus/COVID-19? No / Unsure 08/09/2022 9:00 AM CDT documented as of this encounter Functional Status * RETIRED Are you deaf or do you have serious difficulty hearing Answer Date of Assessment Author Status No 07/09/2022 10:55 AM ELECTRONIC TECHNICIAN Acti ve * RETIRED Are you blind or do you have serious difficulty seeing, even when wearing glasses? Answer Date of Assessment Author Status No 07/09/2022 10:55 AM ELECTRONIC TECHNICIAN Acti ve * Do you have serious difficulty walking or climbing stairs? Answer Date of Assessment Author Status No 07/09/2022 10:55 AM Immanuel Irizarry RN Active * Do you have difficulty dressing or bathing? Answer Date of Assessment Author Status No 07/09/2022 10:55 AM Immanuel Irizarry RN Active * Because of a physical, mental, or emotional condition, do you have difficulty doing errands alone such as visiting a doctor's office or shopping? Answer Date of Assessment Author Status No 07/09/2022 10:55 AM Immanuel Irizarry RN Active documented as of this encounter Mental Status * Because of a physical, mental, or emotional condition, do you have serious difficulty concentrating, remembering, or making decisions? Answer Entry Date Author Status No 07/09/2022 10:55 AM Immanuel Irizarry RN Active documented in this encounter Plan of Treatment Upcoming Encounters Date Type Department Care Team (Late st Contact Info) Description 07/02/2024 1:15 PM ELECTRONIC TECHNICIAN Office Visit [facility] [address] [place] [id number] Zee Clark MD [address] [place] [address] 07/06/2024 1:00 PM ELECTRONIC TECHNICIAN Appointment [facility] Vascular Ultrasound [address] [address] Carol Aguilera MD [address] [place] [address] [id number] 07/06/2024 2:00 PM ELECTRONIC TECHNICIAN Appointment [facility] Non Invasive Cardiology [address] [address] Craol Aguilera MD [address] [place] [address] documented as of this encounter Visit Diagnoses Not on filedocumented in this encounter Care Teams Feed Research Aide Relationship Specialty Start Date End Date Vivienne Baker MD PCP - General FAMILY PRACTICE 02/08/22 Adriana Hill MD Consulting Physician CARDIOVASCULAR DISEASE 02/08/22 David Craven MD [address] [place] [id number] Consulting Physician Thoracic Surgery (Cardiothoracic Vascular Surgery) 06/22/22 Carol Aguilera MD [address] [place] [address] Consulting Physician CARDIOVASCULAR DISEASE 11/17/23 documented as of this encounter
--- OUTSIDE RECORDS SUMMARY | 2024-06-24 14:31 | XMS_ITS | Encounter Summary ---
Author Organization [facility] Address [address] [place] [address] Care Team Providers Care Spot Facer Name Role Phone Vivienne Baker MD Primary Care Provider [phone] Adriana Hill MD Unavailable Unavailabl e David Craven MD Unavailable [phone] Carol Aguilera MD Unavailable Encounter Details Date Type Department Care Team (Late Contact Info) Description 04/23/2022 GivU Message Enc [place] [facility] ield [address] [place] [address] [facility] Provider Echo Results Social History Tobacco Use Types Packs/Day Years Used Date Smoking Tobacco: Never Smokeless Tobacco: Never Alcohol Use Standard Drinks/Week Comments Yes 0 (1 standard drink = 0.6 oz pur e alcohol) 4 per week Comments Unknown Sex and Gender Information Value Date Recorded Sex Assigned at Female 06/15/2024 1:38 PM WATERSHED COORDINATOR Legal Sex Female 9:57 AM CDT Gender Identity Not on file Sexual Orientation Not on file COVID-19 Exposure Response Date Recorded In the last 10 days, have yo u been in contact with someone who was confirmed or suspected to have Coronavirus/COVID-19? Unable to assess 04/25/2022 3:41 PM WATERSHED COORDINATOR documented as of this encounter Plan of Treatment Upcoming Encounters Date Type Department Care Team (Late Contact Info) Description 07/02/2024 1:15 PM WATERSHED COORDINATOR Office Visit [facility] [address] [place] [address] Zee Clark MD [address] [place], [place] [phone] 07/06/2024 1:00 PM WATERSHED COORDINATOR Appointment [facility] Vascular Ultrasound - [facility] [address] [place] [address] Carol Aguilera MD [address] [place], [place] [id number] 07/06/2024 2:00 PM WATERSHED COORDINATOR Appointment [facility] Non Invasive Cardiology [facility] [address] [place] [address] Carol Aguilera MD [address] [place], [place] [phone] documented as of this encounter Visit Diagnoses Not on filedocumented in this encounter Care Teams Spot Facer Relationship Specialty Start Date End Date Vivienne Baker MD PCP - General FAMILY PRACTICE 02/08/22 Adriana Hill MD Consulting Physician CARDIOVASCULAR DISEASE 02/08/22 David Craven MD [address] [place] [id number] Consulting Physician Thoracic Surgery (Cardiothoracic Vascular Surgery) 06/22/22 Carol Aguilera MD [address] [place], [place] [id number] Consulting Physician CARDIOVASCULAR DISEASE 11/17/23 documented as of this encounter
--- OUTSIDE RECORDS SUMMARY | 2024-06-24 14:31 | XMS_ITS | Encounter Summary ---
Author Organization [facility] Address [address] [place] [address] Care Team Providers Care Dry Cleaning Machine Operator Name Role Phone Vivienne Baker MD Primary Care Provider [phone] Adriana Hill MD Unavailable Unavailabl David Dougherty MD Unavailable [phone] Carol Aguilera MD Unavailable Encounter Details Date Type Department Care Team (Late Contact Info) Description 04/24/2022 [email or web address] Message Enc [facility] ield [address] [place] [address] [facility] Provider 04/26 appt Social History Tobacco Use Types Packs/Day Years Used Date Smoking Tobacco: Never Smokeless Tobacco: Never Alcohol Use Standard Drinks/Week Comments Yes 0 (1 standard drink = 0.6 oz pur e alcohol) 4 per week Comments Unknown Sex and Gender Information Value Date Recorded Sex Assigned at Female 06/15/2024 1:38 PM GINNER Legal Sex Female 9:57 AM CDT Gender Identity Not on file Sexual Orientation Not on file COVID-19 Exposure Response Date Recorded In the last 10 days, have yo u been in contact with someone who was confirmed or suspected to have Coronavirus/COVID-19? Unable to assess 04/25/2022 3:41 PM GINNER documented as of this encounter Plan of Treatment Upcoming Encounters Date Type Department Care Team (Late Contact Info) Description 07/02/2024 1:15 PM GINNER Office Visit [facility]END[facility] TO [facility] [address] [place] [address] Zee Clark MD [address] [place], [place] [address] 07/06/2024 1:00 PM GINNER Appointment [facility] Vascular Ultrasound - [facility] [address] [place] [address] Carol Aguilera MD [address] [place], [place] [address] 07/06/2024 2:00 PM GINNER Appointment [facility] Non Invasive Cardiology [facility] [address] [place] [address] Carol Aguilera MD [address] [place], [place] [phone] documented as of this encounter Visit Diagnoses Not on filedocumented in this encounter Care Teams Dry Cleaning Machine Operator Relationship Specialty Start Date End Date Vivienne Baker MD PCP - General FAMILY PRACTICE 02/08/22 Adriana Hill MD Consulting Physician CARDIOVASCULAR DISEASE 02/08/22 David Craven MD [address] [place] [address] Consulting Physician Thoracic Surgery (Cardiothoracic Vascular Surgery) 06/22/22 Carol Aguilera MD [address] [place], [place] [phone] Consulting Physician CARDIOVASCULAR DISEASE 11/17/23 documented as of this encounter
--- OUTSIDE RECORDS SUMMARY | 2024-06-24 14:31 | XMS_ITS | Encounter Summary ---
Author Organization [facility] Address [address] [place] [address] Care Team Providers Care Receiving Dock Checker Name Role Phone Vivienne Baker MD Primary Care Provider [phone] Adriana Hill MD Unavailable Unavailabl e David Craven MD Unavailable [phone] Carol Aguilera MD Unavailable Encounter Details Date Type Department Care Team (Late st Contact Info) Description 07/10/2022 Hospital Follow-up Call [facility] [address] [place] [address] Angy Jacobson, RN Social History Tobacco Use Types Packs/Day Years [...] money to buy more. Never true 07/05/19 23 Within the past 12 months, t he [...] place to sleep or slept in a [facility] (including now)? No 07/05/2022 Comments Unknown Sex and Gender Information Value Date Recorded Sex Assigned at Female 06/15/2024 1:38 PM PRE FABRICATOR Legal Sex Female 9:57 AM CDT Gender Identity Not on file Sexual Orientation Not on file COVID-19 Exposure Response Date Recorded In the last 10 days, have yo u been in contact with someone who was confirmed or suspected to have Coronavirus/COVID-19? No / Unsure 07/04/2022 9:09 AM PRE FABRICATOR documented as of this encounter Functional Status * RETIRED Are you deaf or do you have serious difficulty hearing Answer Date of Assessment Author Status No 07/09/2022 10:55 AM PRE FABRICATOR Acti ve * RETIRED Are you blind or do you have serious difficulty seeing, even when wearing glasses? Answer Date of Assessment Author Status No 07/09/2022 10:55 AM PRE FABRICATOR Acti ve * Do you have serious [...] st Contact Info) Description 07/02/2024 1:15 PM PRE FABRICATOR Office Visit [facility] [address] [place] [address] Zee Clark MD [address] [place] [address] 07/06/2024 1:00 PM PRE FABRICATOR Appointment [facility] Vascular Ultrasound [address] [address] Carol Aguilera MD [address] [place] [id number] 07/06/2024 2:00 PM PRE FABRICATOR Appointment [facility] Non Invasive Cardiology [address] [address] Carol Aguilera MD [address] [place] [address] documented as of this encounter Visit Diagnoses Not on filedocumented in this encounter Care Teams Receiving Dock Checker Relationship Specialty Start Date End Date Vivienne Baker MD PCP - General FAMILY PRACTICE 02/08/22 Adriana Hill MD Consulting Physician CARDIOVASCULAR DISEASE 02/08/22 David Craven MD [address] [place] [phone] Consulting Physician Thoracic Surgery (Cardiothoracic Vascular Surgery) 06/22/22 Carol Aguilera MD [address] [place], [place] [address] Consulting Physician CARDIOVASCULAR DISEASE 11/17/23 documented as of this encounter
--- OUTSIDE RECORDS SUMMARY | 2024-06-24 14:31 | XMS_ITS | Referral Summary ---
Author Organization [facility] Address [address] [place] [address] Care Team Providers Care Napper Grinder Name Role Phone Neisha Mcneill MD Primary Care Provider Allergies No known active allergies Medications metFORMIN (GLUCOPHAGE) 500 mg tablet TK 1 T PO QAM AND 2 TS PO QPM 0 9 Active CHOLECALCIFEROL 1,000 unit tablet Take 1 tablet (1,000 Units total) by mouth daily 0 9 Active buPROPion SR (WELLBUTRIN SR) 150 mg 12 hr tablet TK 1 T PO BID 0 9 Active losartan (COZAAR) 25 mg tablet Take 2 tablets (50 mg total) by mouth daily 0 9 Active terbinafine (LamiSIL) 250 mg tablet Take 250 mg by mouth daily 0 9 Active aspirin 81 mg chewable tablet Take 1 tablet (81 mg total) by mouth daily 2 Active cyanocobalamin (Vitamin B-12) 1,000 mcg tablet Take 1 tablet (1,000 mcg total) by mouth daily Active dulaglutide (Trulicity) 0.75 mg/0.5 mL pen injector ADMINISTER 0.75 MG UNDER THE SKIN WEEKLY 2 Active famotidine (PEPCID) 20 mg tablet Take 1 tablet (20 mg total) by mouth every 12 (twelve) hours 3 Active metoprolol XL (TOPROL-XL) 25 mg extended release tablet Take 1 tablet (25 mg total) by mouth daily 3 Active potassium chloride ER 20 mEq CR tablet Take 2 tablets (40 mEq total) by mouth daily 3 Active rosuvastatin (CRESTOR) 20 mg tablet Take 2 tablets (40 mg total) by mouth daily 2 Active semaglutide (OZEMPIC SUBQ) Inject under the skin Active dapagliflozin propanediol (FARXIGA) 5 mg tablet Take 1 tablet (5 mg total) by mouth daily 4 Active Active Problems Problem Noted Date Diagnosed Date 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 Abnormal stress test 05/01/2022 Agatston coronary artery calcium score greater t farris 400 05/01/2022 Immunizations Name Administration Dates Next Due Influenza, Quadrivalent, Spl it, Intramuscular 02/06/2019 Influenza, Quadrivalent, Spl it, Preservative Free, Intramuscular 02/06/2019,02/27/2018,02/26/2018 Social History Tobacco Use Types Packs/Day Years Used Date Smoking Tobacco: Never Smokeless Tobacco: Never Alcohol Use Standard Drinks/Week Comments Never 0 (1 standard drink = 0.6 oz pur e alcohol) AUDIT-C Answer Date Recorded Frequency of Alcohol Consumption Never 09/02/2018 Average Number of Drinks Not on file 019 Frequency of Binge Drinking Not on file 08/12 Personal Safety Answer Date Recorded Getting School Help Needed Not on file 07/27 Comments Unknown Sex and Gender Information Value Date Recorded Sex Assigned at Not on file Legal Sex Female 1:43 PM CDT Gender Identity Not on file Sexual Orientation Not on file Occupation Industry Job Start Date Job End Date Unemployed Not on file Not on file Not on file Last Filed Vital Signs Vital Sign Reading Time Taken Comments Blood Pressure 122/84 11/08/2023 5:03 PM CDT Pulse 65 11/08/2023 5:03 PM CDT Temperature 36.6 C (97.9 F) 11/08/2023 5:03 PM CDT Respiratory Rate 20 11/08/2023 5:03 PM CDT Oxygen Saturation 98% 11/08/2023 5:03 PM CDT Inhaled Oxygen Concentration - - Weight 82.1 kg (181 lb) 11/08/2023 5:03 PM CDT Height 172.7 cm (5' 8 ) 03/29/2023 11:37 AM CORPORATE PLANNER Body Mass Index 27.52 03/29/2023 11:37 AM CORPORATE PLANNER Plan of Treatment Not on file Insurance [place] [address] Care Teams Napper Grinder Relationship Specialty Start Date End Date Neisha Mcneill MD PCP - General Family Medicine 09/02/18
--- OUTSIDE RECORDS SUMMARY | 2024-06-24 14:31 | XMS_ITS | Encounter Summary ---
Author Organization [facility] Address [facility] [place] [address] Care Team Providers Care Docent Coordinator Name Role Phone Vivienne Baker MD Primary Care Provider [phone] Adriana Hill MD Unavailable Unavailabl e David Craven MD Unavailable [phone] Carol Aguilera MD Unavailable Encounter Details Date Type Department Care Team (Late Contact Info) Description 05/22/2022 Rowl Message Enc [facility] [address] [place] [address] [facility] Provider labs finally received! Social History Tobacco Use Types Packs/Day Years Used Date Smoking Tobacco: Never Smokeless Tobacco: Never Alcohol Use Standard Drinks/Week Comments Yes 0 (1 standard drink = 0.6 oz pur e alcohol) 1 to 2 drinks per week Comments Unknown Sex and Gender Information Value Date Recorded Sex Assigned at Female 06/15/2024 1:38 PM CLIENT CARE REPRESENTATIVE Legal Sex Female 9:57 AM CDT Gender Identity Not on file Sexual Orientation Not on file COVID-19 Exposure Response Date Recorded In the last 10 days, have yo u been in contact with someone who was confirmed or suspected to have Coronavirus/COVID-19? Unable to assess 04/25/2022 3:41 PM CLIENT CARE REPRESENTATIVE documented as of this encounter Plan of Treatment Upcoming Encounters Date Type Department Care Team (Late Contact Info) Description 07/02/2024 1:15 PM CLIENT CARE REPRESENTATIVE Office Visit [facility] [address] [place] [address] Zee Clark MD [address] [place] [address] 07/06/2024 1:00 PM CLIENT CARE REPRESENTATIVE Appointment [facility] Vascular Ultrasound - [facility] [address] [place] [address] Carol Aguilera MD [address] [place] [address] 07/06/2024 2:00 PM CLIENT CARE REPRESENTATIVE Appointment [facility] Non Invasive Cardiology [facility] [address] [place] [address] Carol Aguilera MD [address] [place], [place] [phone] documented as of this encounter Visit Diagnoses Not on filedocumented in this encounter Care Teams Docent Coordinator Relationship Specialty Start Date End Date Vivienne Baker MD PCP - General FAMILY PRACTICE 02/08/22 Adriana Hill MD Consulting Physician CARDIOVASCULAR DISEASE 02/08/22 David Craven MD [address] [place] [address] Consulting Physician Thoracic Surgery (Cardiothoracic Vascular Surgery) 06/22/22 Carol Aguilera MD [address] [place], [place] [address] Consulting Physician CARDIOVASCULAR DISEASE 11/17/23 documented as of this encounter
--- OUTSIDE RECORDS SUMMARY | 2024-06-24 14:31 | XMS_ITS | Encounter Summary ---
Author Organization [facility] Address [address] [place] [address] Care Team Providers Care Fiscal Assistant Name Role Phone Vivienne Baker MD Primary Care Provider Adriana Hill MD Unavailable Unavailabl e David Craven MD Unavailable [phone] Carol Aguilera MD Unavailable Encounter Details Date Type Department Care Team (Late st Contact Info) Description 08/08/2022 Egnyte Message Enc [facility] eld [address] [place] [address] Adriana Hill MD Lab Social History Tobacco Use Types Packs/Day Years [...] place to sleep or slept in a senior care (including now)? No 07/05/2022 Comments Unknown Sex and Gender Information Value Date Recorded Sex Assigned at Female 06/15/2024 1:38 PM QUITLINE COUNSELOR Legal Sex Female 9:57 AM CDT Gender [...] Assessment Author Status No 07/09/2022 10:55 AM QUITLINE COUNSELOR Acti ve * RETIRED Are you blind or do you have serious difficulty seeing, even when wearing glasses? Answer Date of Assessment Author Status No 07/09/2022 10:55 AM QUITLINE COUNSELOR Acti ve * Do you have serious [...] st Contact Info) Description 07/02/2024 1:15 PM QUITLINE COUNSELOR Office Visit [facility] [address] [place] [address] Zee Clark MD [address] [place] [address] 07/06/2024 1:00 PM QUITLINE COUNSELOR Appointment [facility] Vascular Ultrasound [address] [address] Carol Aguilera MD [address] [place] [address] 07/06/2024 2:00 PM QUITLINE COUNSELOR Appointment [facility] Non Invasive Cardiology [address] [address] Carol Aguilera MD [address] [place] [address] documented as of this encounter Visit Diagnoses Not on filedocumented in this encounter Care Teams Fiscal Assistant Relationship Specialty Start Date End Date Vivienne Baker MD PCP - General FAMILY PRACTICE 02/08/22 Adriana Hill MD Consulting Physician CARDIOVASCULAR DISEASE 02/08/22 David Craven MD [address] [place] [address] Consulting Physician Thoracic Surgery (Cardiothoracic Vascular Surgery) 06/22/22 Carol Aguilera MD [address] [place] [address] Consulting Physician CARDIOVASCULAR DISEASE 11/17/23 documented as of this encounter
--- OUTSIDE RECORDS SUMMARY | 2024-06-24 14:31 | XMS_ITS | Encounter Summary ---
Author Organization [facility] [place] [address] Care Team Providers Care Strap Cutter Name Role Phone Vivienne Baker MD Primary Care Provider [phone] Adriana Hill MD Unavailable Unavailabl e David Craven MD Unavailable [phone] Carol Aguilera MD Unavailable Encounter Details Date Type Department Care Team (Late st Contact Info) Description 06/25/[address] [facility] [address] [place] [address] David Craven MD [address] [place] [address] Social History Tobacco Use Types Packs/Day Years Used Date Smoking Tobacco: Never Smokeless Tobacco: Never Alcohol Use Standard Drinks/Week Comments Yes 0 (1 standard drink = 0.6 oz pur e alcohol) 1 to 2 drinks per week Comments Unknown Sex and Gender Information Value Date Recorded Sex Assigned at Female 06/15/2024 1:38 PM COSTUME MISTRESS Legal Sex Female 9:57 AM CDT Gender Identity Not on file Sexual Orientation Not on file COVID-19 Exposure Response Date Recorded In the last 10 days, have yo u been in contact with someone who was confirmed or suspected to have Coronavirus/COVID-19? No / Unsure 06/21/2022 9:42 AM COSTUME MISTRESS documented as of this encounter Plan of Treatment Upcoming Encounters Date Type Department Care Team (Late st Contact Info) Description 07/02/2024 1:15 PM COSTUME MISTRESS Office Visit [facility] [address] [place], [place] [address] Zee Clark MD [address] [place] [address] 07/06/2024 1:00 PM COSTUME MISTRESS Appointment [facility] Vascular Ultrasound - [facility] [address] [place] [address] Carol Aguilera MD [address] [place], [place] [address] 07/06/2024 2:00 PM COSTUME MISTRESS Appointment [facility] Non Invasive Cardiology [facility] [address] [place], [place] [address] Carol Aguilera MD [address] [place], [place] [phone] documented as of this encounter Visit Diagnoses Not on filedocumented in this encounter Care Teams Strap Cutter Relationship Specialty Start Date End Date Vivienne Baker MD PCP - General FAMILY PRACTICE 02/08/22 Adriana Hill MD Consulting Physician CARDIOVASCULAR DISEASE 02/08/22 David Craven MD [address] [place] [address] Consulting Physician Thoracic Surgery (Cardiothoracic Vascular Surgery) 06/22/22 Carol Aguilera MD [address] [place], [place] [address] Consulting Physician CARDIOVASCULAR DISEASE 11/17/23 documented as of this encounter
--- OUTSIDE RECORDS SUMMARY | 2024-06-24 14:31 | XMS_ITS | Encounter Summary ---
Author Organization [facility] Address [address] [place] [address] Care Team Providers Care Manager Social Media Name Role Phone Vivienne Baker MD Primary Care Provider [phone] Adriana Hill MD Unavailable Unavailabl e David Craven MD Unavailable [phone] Carol Aguilera MD Unavailable Encounter Details Date Type Department Care Team (Late st Contact Info) Description 05/22/2022 Abstract [place] [address] [place] [address] Adriana Hill MD Social History Tobacco Use Types Packs/Day Years Used Date Smoking Tobacco: Never Smokeless Tobacco: Never Alcohol Use Standard Drinks/Week Comments Yes 0 (1 standard drink = 0.6 oz pur e alcohol) 1 to 2 drinks per week Comments Unknown Sex and Gender Information Value Date Recorded Sex Assigned at Female 06/15/2024 1:38 PM ELECTRONIC PUBLICATIONS SPECIALIST Legal Sex Female 9:57 AM CDT Gender Identity Not on file Sexual Orientation Not on file COVID-19 Exposure Response Date Recorded In the last 10 days, have yo u been in contact with someone who was confirmed or suspected to have Coronavirus/COVID-19? Unable to assess 04/25/2022 3:41 PM ELECTRONIC PUBLICATIONS SPECIALIST documented as of this encounter Progress Notes * Adriana Hill MD - 05/22/2022 5:11 PM CST Attempted to call the patient on her phone she didn't slate picker I left a message I would like to proceed with cath but I wanted to explain to her the possible risk of worsening kidney function. Please have her call me first. Please share with pcp and ask to workup altered GFR, TRONIC PUBLICATIONS SPECIALIST documented in this encounter Plan of Treatment Upcoming Encounters Date Type Department Care Team (Late st Contact Info) Description 07/02/2024 1:15 PM ELECTRONIC PUBLICATIONS SPECIALIST Office Visit [facility] [address] [place] [phone] Zee Clark MD [address] [place], [place] [phone] 07/06/2024 1:00 PM ELECTRONIC PUBLICATIONS SPECIALIST Appointment [facility] Vascular Ultrasound - [address] [address] Carol Aguilera MD [address] [place] [id number] 07/06/2024 2:00 PM ELECTRONIC PUBLICATIONS SPECIALIST Appointment [facility] Non Invasive Cardiology [address] [address] Carol Aguilera MD [address] [place], [place] [phone] documented as of this encounter Procedures Procedure Name Priority Date/Time Associated Diagnosis Comments BASIC METABOLIC PANEL Routine 05/11/2022 Encounter for long-term current use of medication documented in this encounter Results * (ABNORMAL) BASIC METABOLIC PANEL (05/11/2022) SODIUM S/P/B 140 POTASSIUM S/P/B 3.7 CO2 29.0 CHLORIDE S/P/B 105 GLUCOSE 155 mg/dL CALCIUM S/P/B 9.2 BUN 21 CREATININE S/P/B 1.4(A) 0.5 - 1.0 EGFR AFR. AMER. 41 <=90 05/11/2022 Adriana Hill MD LABORATORY Final Resul t documented in this encounter Visit Diagnoses Diagnosis Encounter for long-term current use of medication documented in this encounter Care Teams Manager Social Media Relationship Specialty Start Date End Date Vivienne Baker MD PCP - General FAMILY PRACTICE 02/08/22 Adriana Hill MD Consulting Physician CARDIOVASCULAR DISEASE 02/08/22 David Craven MD [address] [place] [phone] Consulting Physician Thoracic Surgery (Cardiothoracic Vascular Surgery) 06/22/22 Carol Aguilera MD [address] [place], [place] [address] Consulting Physician CARDIOVASCULAR DISEASE 11/17/23 documented as of this encounter
--- OUTSIDE RECORDS SUMMARY | 2024-06-24 14:31 | XMS_ITS | Encounter Summary ---
Author Organization [facility] Address [facility] [place] [address] Care Team Providers Care Painter Name Role Phone Vivienne Baker MD Primary Care Provider [phone] Adriana Hill MD Unavailable Unavailabl David Dougherty MD Unavailable [phone] Carol Aguilera MD Unavailable Encounter Details Date Type Department Care Team (Late Contact Info) Description 05/10/2022 Autism Home Support Services Message Enc [facility] [facility] [address] [place] [address] [facility] Provider swelling, BP, and labwork Social History Tobacco Use Types Packs/Day Years Used Date Smoking Tobacco: Never Smokeless Tobacco: Never Alcohol Use Standard Drinks/Week Comments Yes 0 (1 standard drink = 0.6 oz pur e alcohol) 1 to 2 drinks per week Comments Unknown Sex and Gender Information Value Date Recorded Sex Assigned at Female 06/15/2024 1:38 PM COMMUNITY MENTAL HEALTH SOCIAL WORKER Legal Sex Female 9:57 AM CDT Gender Identity Not on file Sexual Orientation Not on file COVID-19 Exposure Response Date Recorded In the last 10 days, have yo u been in contact with someone who was confirmed or suspected to have Coronavirus/COVID-19? Unable to assess 04/25/2022 3:41 PM COMMUNITY MENTAL HEALTH SOCIAL WORKER documented as of this encounter Plan of Treatment Upcoming Encounters Date Type Department Care Team (Late Contact Info) Description 07/02/2024 1:15 PM COMMUNITY MENTAL HEALTH SOCIAL WORKER Office Visit [facility] [address] [place] [address] Zee Clark MD [address] [place] [address] 07/06/2024 1:00 PM COMMUNITY MENTAL HEALTH SOCIAL WORKER Appointment [facility] Vascular Ultrasound - [facility] [address] [place] [address] Carol Aguilera MD [address] [place] [address] 07/06/2024 2:00 PM COMMUNITY MENTAL HEALTH SOCIAL WORKER Appointment [facility] Non Invasive Cardiology - [facility] [address] [place] [address] Carol Aguilera MD [address] [place], [place] [phone] documented as of this encounter Visit Diagnoses Not on filedocumented in this encounter Care Teams Painter Relationship Specialty Start Date End Date Vivienne Baker MD PCP - General FAMILY PRACTICE 02/08/22 Adriana Hill MD Consulting Physician CARDIOVASCULAR DISEASE 02/08/22 David Craven MD [address] [place] [address] Consulting Physician Thoracic Surgery (Cardiothoracic Vascular Surgery) 06/22/22 Carol Aguilera MD [address] [place], [place] [address] Consulting Physician CARDIOVASCULAR DISEASE 11/17/23 documented as of this encounter
--- OUTSIDE RECORDS SUMMARY | 2024-06-24 14:31 | XMS_ITS | Encounter Summary ---
Author Organization [facility] Address [address] [place] [address] Care Team Providers Care Motorboat Mechanic Helper Name Role Phone Vivienne Baker MD Primary Care Provider Adriana Hill MD Unavailable Unavailabl e David Craven MD Unavailable [phone] Carol Aguilera MD Unavailable Encounter Details Date Type Department Care Team (Late st Contact Info) Description 06/19/2022 Hospital Orders Only [facility] Pre/Post [address] [place] [address] Willi Avalos MD [address] [place] [address] Social History Tobacco Use Types Packs/Day Years Used Date Smoking Tobacco: Never Smokeless Tobacco: Never Alcohol Use Standard Drinks/Week Comments Yes 0 (1 standard drink = 0.6 oz pur e alcohol) 1 to 2 drinks per week Comments Unknown Sex and Gender Information Value Date Recorded Sex Assigned at Female 06/15/2024 1:38 PM TRAFFIC CONTROLLER CABLE Legal Sex Female 9:57 AM CDT Gender Identity Not on file Sexual Orientation Not on file COVID-19 Exposure Response Date Recorded In the last 10 days, have yo u been in contact with someone who was confirmed or suspected to have Coronavirus/COVID-19? No / Unsure 06/21/2022 9:42 AM TRAFFIC CONTROLLER CABLE documented as of this encounter Plan of Treatment Upcoming Encounters Date Type Department Care Team (Late st Contact Info) Description 07/02/2024 1:15 PM TRAFFIC CONTROLLER CABLE Office Visit [facility] [address] [place], [place] [phone] Zee Clark MD [address] [place] [address] 07/06/2024 1:00 PM TRAFFIC CONTROLLER CABLE Appointment [facility]ound - [facility] [address] [place] [address] Carol Aguilera MD [address] [place], [place] [phone] 07/06/2024 2:00 PM TRAFFIC CONTROLLER CABLE Appointment [facility] Non Invasive Cardiology [facility] [address], [place] [address] Carol Aguilera MD [address] [place], [place] [address] documented as of this encounter Visit Diagnoses Not on filedocumented in this encounter Care Teams Motorboat Mechanic Helper Relationship Specialty Start Date End Date Vivienne Baker MD PCP - General FAMILY PRACTICE 02/08/22 Adriana Hill MD Consulting Physician CARDIOVASCULAR DISEASE 02/08/22 David Craven MD [address] [place] [id number] Consulting Physician Thoracic Surgery (Cardiothoracic Vascular Surgery) 06/22/22 Carol Aguilera MD [address] [place], [place] [address] Consulting Physician CARDIOVASCULAR DISEASE 11/17/23 documented as of this encounter
--- OUTSIDE RECORDS SUMMARY | 2024-06-24 14:31 | XMS_ITS | Clinical Summary ---
Author Organization [facility] Address [address] [place] [address] Care Team Providers Care Financial Internship Name Role Phone Neisha Mcneill MD Primary [...] Quadrivalent, Spl it, Preservative Free, Intramuscular 02/06/2019,02/27/2018,02/26/2018 Surgical History Surgery Date Site/Laterality Comments SECTION 05/13/1984 - 05/12/1985 MENISCECTOMY 05/13/2003 - 05/12/2004 Medical History Medical History Date Comments Hypertension Diabetes mellitus (HCC) Family History Medical History Relation Name Comments Cancer Other Diabetes Other Heart disease Other Stroke Other Relation Name Status Comments Other Social History Tobacco Use Types Packs/Day Years [...] file Not on file Not on file Obstetrics History Last Filed Vital Signs Vital Sign Reading [...] cm (5' 8 ) 03/29/2023 11:37 AM MACHINE BOOKKEEPER Body Mass Index 27.52 03/29/2023 11:37 AM MACHINE BOOKKEEPER Plan of Treatment Health Maintenance Due Date Last Done Comments Breast Cancer Screening-Mammogram 1960 Cervical Cancer Screening 1960 Colon Cancer Screening-Colonoscopy 1960 Depression Screening 1960 Hepatitis C Screening 1960 DTaP/Tdap/Td Vaccine (1 - Tdap) 09/18/1971 Hepatitis B Screening 1978 Regular Well Visit/Exam 18-64 1978 Zoster Vaccine (1 of 2) 2010 Influenza Vaccine (#1) 2024 9, 02/06/2019, 02/27/2018, Additional history exists Pneumococcal vaccine <65 Aged Out No longer eligible based on patient's age to complete this topic Insurance CHOICE [place]F [place] [address] Care Teams Financial Internship Relationship Specialty Start Date End Date Neisha Mcneill MD PCP - General Family Medicine 09/02/18
--- OUTSIDE RECORDS SUMMARY | 2024-06-24 14:31 | XMS_ITS | Clinical Summary ---
Author Organization [facility] Address [address] [place] [address] Care Team Providers Care Pelletizer Tender Name Role Phone Vivienne Baker MD Primary Care Provider [phone] David Craven MD Unavailable [phone] Rosamaria Pierce MD Unavailable Allergies No known active allergies Medications vitamin B-12 (CYANOCOBALAMIN) (CYANOCOBALAMIN) 1000 mcg tablet Take 1 tablet (1,000 mcg total) by mouth daily. Active vitamin D3, cholecalciferol, 1000 UNIT Tab tablet Take 1 tablet (25 mcg total) by mouth daily. Active aspirin 81 MG chewable tablet TAKE 1 TABLET BY MOUTH EVERY DAY 30 tablet 3 2 Active ONETOUCH ULTRA test strip USE 1 STRIP IN VITRO DAILY 2 Active Lancets (ONETOUCH ULTRASOFT) lancets USE ONE LANCET DAILY TO TEST BLOOD SUGAR 2 Active rosuvastatin (CRESTOR) 20 MG tabletIndication s:Atrial fibrillation, unspecified type (CMS/HCC HHS/HCC),Essenti al (primary) hypertension Take 2 tablets (40 mg total) by mouth nightly at bedtime. 90 tablet 6 2 Active losartan (COZAAR) 50 MG tablet Take 1 tablet (50 mg total) by mouth daily. Active semaglutide (OZEMPIC, 1 MG/DOSE,) 2 MG/1.5ML injection (PEN) 2 mg once a week. 3 Active dapagliflozin (FARXIGA) 10 MG tablet Take 1 tablet (10 mg total) by mouth daily. 30 tablet 11 5 Active metFORMIN (GLUCOPHAGE) 500 MG tablet Take 2 tablets (1,000 mg total) by mouth 2 (two) times daily with meals. 06/15/19 25 Discontinue d(Discontin ued by another clinician) Dapagliflozin Propanediol (FARXIGA) 5 MG Tab Take 5 mg by mouth daily. 90 tablet 1 4 06/15/19 25 Discontinue d(Dose adjustment) Active Problems Problem Noted Date Diagnosed Date High blood pressure 05/17/2023 CAD (coronary artery disease) 05/17/2023 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 Agatston coronary artery calcium score greater t farris 400 05/01/2022 Abnormal stress test 05/01/2022 Encounter for long-term current use of medicatio n 05/01/2022 Diabetes mellitus, type 2 ([facility]) 03/13 Encounters Date Type Department Care Team Description 06/24/2024 Telephone [facility] [address] [place] [address] Rosamaria Pierce MD Orders (CUS) 06/15/2024 1:45 PM GUARD RANGE Office Visit [facility] [address] [place] [address] Rosamaria Pierce MD Heart Problem 06/15/2024 Travel 06/15/2024 Orders Only [facility] [address] [place] [address] Rosamaria Pierce MD from Last 3 Months Family History Medical History Relation Comments Heart Disease Brother CHF Father COPD Father Chronic respiratory failure Mother Heart Disease Sister Relation Status Comments Brother Father Mother Sister Social History Tobacco Use Types Packs/Day Years Used Date Smoking Tobacco: Never Smokeless Tobacco: Never Tobacco Cessation:Counseling Given: Not Answered Alcohol Use Standard Drinks/Week Comments Yes 0 [...] place to sleep or slept in a fpc (including now)? No 07/05/2022 Comments Unknown Sex and Gender Information Value Date Recorded Sex Assigned at Female 06/15/2024 1:38 PM GUARD RANGE Legal Sex Female 9:57 AM CDT Gender Identity Not on file Sexual Orientation Not on file Last Filed Vital Signs Vital Sign Reading Time Taken Comments Blood Pressure 146/88 06/15/2024 2:02 PM GUARD RANGE Pulse 88 06/15/2024 1:42 PM GUARD RANGE Temperature 36.1 C (97 F) 10/30/2023 10:17 AM CDT Respiratory Rate 18 06/15/2024 1:42 PM GUARD RANGE Oxygen Saturation 97% 06/13/2023 3:40 PM GUARD RANGE Inhaled Oxygen Concentration - - Weight 80.6 kg (177 lb 9.6 oz) 06/15/2024 1:42 P M GUARD RANGE Height 172.7 cm (5' 8 ) 06/15/2024 1:42 PM GUARD RANGE Body Mass Index 27 06/15/2024 1:42 PM GUARD RANGE Plan of Treatment Upcoming Encounters Date Type Department Care Team (Late st Contact Info) Description 07/02/2024 1:15 PM GUARD RANGE Office Visit [facility] [address] [place] [phone] Zee Clark MD [address] [place], [place] [address] 07/06/2024 1:00 PM GUARD RANGE Appointment [facility] Vascular Ultrasound - [address] [address] Rosamaria Pierce MD [address] [place], [place] [phone] 07/06/2024 2:00 PM GUARD RANGE Appointment [facility] Non Invasive Cardiology - [address] [phone] Rosamaria Pierce MD [address] [place], [place] [phone] Health Maintenance Due Date Last Done Comments ASCVD Statin 1960 Cervical Cancer Screening Pap Smear (Age 30 to 64) Every 3 Years 1960 Colorectal Cancer Screening Colonoscopy (10 Years) 1960 Kidney Health Evaluation 1960 Annual Physical 09/18/1963 Pneumococcal Vaccine: Pediatrics (0 to 5 Years) and At-Risk Patients (6 to 64 Years) (1 of 2 - PCV) 1966 Diabetes: Retinopathy Eye Exam 1978 DTaP, Tdap and Td Vaccines (1 - Tdap) 09/18/1979 Cervical Cancer Screening Pap with HPV Testing (Age 30 to 64) Every 5 Years 1990 Cervical Cancer Screening with HPV 1990 Mammogram Screening 2000 Zoster Vaccines (1 of 2) 2010 RSV Immunization or 60+ Years (1 - Risk 60-74 years 1-dose series) 2020 Hemoglobin A1C 12/30/2022 07/02/2022 ASCVD LDL 07/02/2023 07/02/2022 Lipid Panel 07/02/2023 07/02/2022 COVID-19 Vaccine ( season) 2024 10/18/2021, 04/19/2021, 08/04/2020, Additional history exists Influenza Adult (#1) 2024 02/11/2021, 01/15/2020, 02/06/2019, Additional history exists Hepatitis C Completed 08/27/2023 Meningococcal B Vaccine Aged Out No l onger eligible based on patient's age to complete this topic Meningococcal Vaccine Aged Out No betty guillermo eligible based on patient's age to complete this topic RSV Immunizations Under 20 Months Aged Out No longer eligible based on patient's age to complete this topic Procedures Procedure Name Priority Date/Time Associated Diagnosis Comments ELECTROCARDIOGRAM (NON MIDMARK ACQUIRED) Routine 06/15/2024 1:48 PM GUARD RANGE CAD (coronary artery disease) HEPATITIS PANEL,ACUTE Routine 08/27/2023 9:59 AM CDT Stage 3a chronic kidney disease ([facility]/HCC) Chronic kidney disease-mineral and bone disorder Primary hypertension LIPID PANEL Routine 07/02/2022 11:34 AM GUARD RANGE HEMOGLOBIN, GLYCOSYLATED Routine 023 11:34 AM GUARD RANGE from Last 3 Months or Most Recently Relevant to Health Maintenance Results * ELECTROCARDIOGRAM (06/15/2024 1:48 PM GUARD RANGE) 06/15/2024 1:48 PM GUARD RANGE Narrative [facility] - 06/15/2024 5:14 PM GUARD RANGE [facility] [address] [place] [address] Test Date: 2024-06-15 Pat Name: DANIKA ESCALANTE Department: 105 Room: Gender: Female Wallpaper Hanger Helper: saw : 1960 Requested By: ROSAMARIA PIERCE Order Number: [id number] Reading MD: Rosamaria Pierce Measurements Intervals [place] Rate: 87 P: 62 NH: 144 QRS: 73 QRSD: 89 T: 26 QT: 380 QTc: 459 Interpretive Statements SINUS RHYTHM LOW QRS VOLTAGE IN PRECORDIAL LEADS POSSIBLE ANTERIOR MYOCARDIAL INFARCTION, PROBABLY OLD POSSIBLE INFERIOR MYOCARDIAL INFARCTION, PROBABLY OLD D RANGE Procedure Note Rosamaria Pierce MD - 06/15/2024 [facility] [address] [place] [address] Test Date: 2024-06-15 Pat Name: DANIKA ESCALANTE Department: 105 Room: Gender: Female Wallpaper Hanger Helper: saw : 1960 Requested By: ROSAMARIA PIERCE Order Number: [id number] Reading MD: Rosamaria Pierce Measurements Intervals [place] Rate: 87 P: 62 NH: 144 QRS: 73 QRSD: 89 T: 26 QT: 380 QTc: 459 Interpretive Statements SINUS RHYTHM LOW QRS VOLTAGE IN PRECORDIAL LEADS POSSIBLE ANTERIOR MYOCARDIAL INFARCTION, PROBABLY OLD POSSIBLE INFERIOR MYOCARDIAL INFARCTION, PROBABLY OLD D RANGE us Rosamaria Pierce MD PROCEDURES-ORDERABLE NO CHARGE F inal Result AMANDA CARDIOVASCULAR * HEPATITIS PANEL,ACUTE (08/27/2023 9:59 AM CDT) HEPATITIS B SURFACE AG NON-REACT IDA NON-REACT IDA 08/27/2023 12:10 PM CDT [facility] Comment:HBsAg NOT DETECTED. HEP B CORE IGM NON-REACT IDA NON-REACT IDA 08/27/2023 12:10 PM CDT [facility] Comment: IgM ANTI HBc NOT DETECTED. DOES NOT EXCLUDE THE POSSIBILITY OF EXPOSURE TO OR INFECTION WITH HBV. NO RETEST REQUIRED. HIGH DOSES OF BIOTIN MAY INTERFERE WITH THIS TEST RESULT. CORRELATION TO CLINICAL HISTORY AND PRESENTATION RECOMMENDED. HAV IGM NON-REACT IDA NON-REACT IDA 08/27/2023 12:10 PM CDT [facility] Comment: IgM ANTI HAV NOT DETECTED. DOES NOT EXCLUDE THE POSSIBILITY OF EXPOSURE TO OR INFECTION WITH HAV. LEVELS OF IgM ANTI HAV MAY BE BELOW THE CUTOFF IN EARLY INFECTION. HEPATITIS C AB NON-REACT IDA NON-REACT IDA 08/27/2023 12:10 PM CDT [facility] Comment: ANTIBODIES TO HCV NOT DETECTED. DOES NOT EXCLUDE THE POSSIBILITY OF EXPOSURE TO HCV. 08/27/2023 9:59 AM CDT Guevara Londono MD LABORATORY Final Result Performing Organization Address City/[facility] Co de Phone Number [facility] [address] [place] [address], [phone] * (ABNORMAL) HEMOGLOBIN, GLYCATED (07/02/2022 11:34 AM GUARD RANGE) HGB A1C 6.9(H) <5.7 % 07/02/2022 12:07 PM GUARD RANGE [facility] ESTIMATED AVG GLUCOSE 151(H) 74 - 114 MG/DL 07/02/2022 12:07 PM GUARD RANGE [facility] 07/02/2022 11:3 4 AM GUARD RANGE David Craven MD LABORATORY Final Resul t Performing Organization Address City/[facility]/ZIP Co de Phone Number [facility] [address] [place] [address], [phone] * LIPID PANEL (07/02/2022 11:34 AM GUARD RANGE) CHOLESTEROL 95 MG/DL 07/02/2022 12:19 PM GUARD RANGE [facility] Comment:DESIRABLE: <200 TRIGLYCERIDES 144 MG/DL 07/02/2022 12:19 PM GUARD RANGE [facility] Comment:<150 NORMAL HDL 52 >49 MG/DL 07/02/2022 12:19 PM GUARD RANGE [facility] LDL (CALCULATED) 14 MG/DL 07/02/19 12:19 PM GUARD RANGE [facility] Comment:<100 OPTIMAL VLDL CALCULATION 29 MG/DL 07/02/19 12:19 PM GUARD RANGE [facility] Comment:REFERENCE RANGE NOT ESTABLISHED CHOL/HDL RATIO 1.8 07/02/2022 12:19 PM GUARD RANGE [facility] Comment:REFERENCE RANGE NOT ESTABLISHED LDL/HDL 0.3 07/02/2022 12:19 PM GUARD RANGE [facility] Comment:REFERENCE RANGE NOT ESTABLISHED NON HDL CHOLESTEROL 43 MG/DL 07/02/2022 12:19 PM [facility] Comment:REFERENCE RANGE NOT ESTABLISHED 07/02/2022 11:3 4 AM GUARD RANGE David Craven MD LABORATORY Final Resul t [facility] [address] [place] [address], [phone] from Last 3 Months or Most Recently Relevant to Health Maintenance Insurance Advance Directives * Full Code (Latest Code Status on File) Date Activated Date Inactivated Comments 07/04/2022 4:37 PM 07/09/2022 1:59 PM Care Teams Pelletizer Tender Relationship Specialty Start Date End Date Vivienne Baker MD PCP - General FAMILY PRACTICE 02/08/22 David Craven MD [address] [place] [id number] Consulting Physician Thoracic Surgery (Cardiothoracic Vascular Surgery) 06/22/22 Rosamaria Pierce MD [address] [place] [address] Consulting Physician CARDIOVASCULAR DISEASE 11/17/23
--- OUTSIDE RECORDS SUMMARY | 2024-06-24 14:31 | XMS_ITS | Encounter Summary ---
Author Organization [facility] Address [address] [place] [address] Care Team Providers Care Filament Cutter Name Role Phone Vivienne Baker MD Primary Care Provider [phone] David Craven MD Unavailable [phone] Carol Aguilera MD Unavailable Reason for Referral * Imaging (Routine) - New Request Specialty Diagnoses / Procedures Referred By Contac t Referred To Contact RADIOLOGY Diagnoses CAD (coronary artery disease) Procedures USV CAROTID DUPLEX GERI Carol Aguilera MD [address] [place] [address] Phone: tel: fax: Referral ID Status Reason Start Date Expiration Date V isits Requested Visits Authorized [id number] New Request 06/24/2024 07/25/2025 1 1 STANT PROFESSOR OF THEATER Reason for Visit * Reason Onset Date Comments Orders 06/24/2024 CUS Encounter Details Date Type Department Care Team (Late st Contact Info) Description 06/24/2024 Telephone [facility] [address] [place] [address] Carol Aguilera MD [address] [place] [address] Orders (CUS) Social History Tobacco Use Types Packs/Day Years [...] place to sleep or slept in a chcf (including now)? No 07/05/2022 Comments Unknown Sex and Gender Information Value Date Recorded Sex Assigned at Female 06/15/2024 1:38 PM ASSISTANT PROFESSOR OF THEATER Legal Sex Female 9:57 AM CDT Gender Identity Not on file Sexual Orientation Not on file documented as of this encounter Functional Status * RETIRED Are you deaf or do you have serious difficulty hearing Answer Date of Assessment Author Status No 07/09/2022 10:55 AM ASSISTANT PROFESSOR OF THEATER Acti ve * RETIRED Are you blind or do you have serious difficulty seeing, even when wearing glasses? Answer Date of Assessment Author Status No 07/09/2022 10:55 AM ASSISTANT PROFESSOR OF THEATER Acti ve * Do you have serious [...] Irizarry RN Active documented in this encounter Progress Notes * Petty Hanks RN - 06/24/2024 10:51 AM CSTAddended by: PETTY HANKS on: 06/24/2024 10:51 AM Modules accepted: Orders STANT PROFESSOR OF THEATER * Yani Urena - 06/24/2024 9:12 AM CST Please put in a CUS order for next year. I will then schedule CUS and f/u. STANT PROFESSOR OF THEATER documented in this encounter Plan of Treatment Upcoming Encounters Date Type Department Care Team (Late st Contact Info) Description 07/02/2024 1:15 PM ASSISTANT PROFESSOR OF THEATER Office [facility] [address] [place] [address] Zee Clark MD [address] [place] [address] 07/06/2024 1:00 PM ASSISTANT PROFESSOR OF THEATER Appointment [facility]ound - [facility] [address] [place], [place] [address] Carol Aguilera MD [address] [place], [place] [address] 07/06/2024 2:00 PM ASSISTANT PROFESSOR OF THEATER Appointment [facility] Non Invasive Cardiology [facility] [address] [place] [address] Carol Aguilera MD [address] [place] [address] Scheduled Orders Name Type Priority Associated Diagnoses Orde r Schedule USV CAROTID DUPLEX GERI US VASC Routine CAD (coronary artery disease) Expected: 05/13/2025, Expires: 12/22/2025 documented as of this encounter Visit Diagnoses Diagnosis CAD (coronary artery disease)- Primary Coronary atherosclerosis of unspecified type of vessel, sitka or graft documented in this encounter Care Teams Filament Cutter Relationship Specialty Start Date End Date Vivienne Baker MD PCP - General FAMILY PRACTICE 02/08/22 David Craven MD [address] [place] [address] Consulting Physician Thoracic Surgery (Cardiothoracic Vascular Surgery) 06/22/22 Carol Aguilera MD [address] [place] [address] Consulting Physician CARDIOVASCULAR DISEASE 11/17/23 documented as of this encounter
--- OUTSIDE RECORDS SUMMARY | 2024-06-24 14:31 | XMS_ITS | Encounter Summary ---
Author Organization [facility] Address [address] [place] [address] Care Team Providers Care Reliner Name Role Phone Vivienne Baker MD Primary Care Provider Adriana Hill MD Unavailable Unavailabl e David Craven MD Unavailable [phone] Carol Aguilera MD Unavailable Encounter Details Date Type Department Care Team (Late st Contact Info) Description 05/17/2023 Abstract [facility] [address] [place] [address] Abstract, Doc Cikda Social History Tobacco Use Types Packs/Day Years [...] place to sleep or slept in a group home (including now)? No 07/05/2022 Comments Unknown Sex and Gender Information Value Date Recorded Sex Assigned at Female 06/15/2024 1:38 PM MINER PLACER Legal Sex Female 9:57 AM CDT Gender Identity Not on file Sexual Orientation Not on file documented as of this encounter Functional Status * RETIRED Are you deaf or do you have serious difficulty hearing Answer Date of Assessment Author Status No 07/09/2022 10:55 AM MINER PLACER Acti ve * RETIRED Are you blind or do you have serious difficulty seeing, even when wearing glasses? Answer Date of Assessment Author Status No 07/09/2022 10:55 AM MINER PLACER Acti ve * Do you have serious difficulty walking or climbing stairs? Answer Date of Assessment Author Status No 07/09/2022 10:55 AM Immanuel Irizarry RN Active * Do you have difficulty dressing or bathing? Answer Date of Assessment Author Status No 07/09/2022 10:55 AM Immanuel Irizarry, OSCAR Active * Because of a physical, mental, [...] st Contact Info) Description 07/02/2024 1:15 PM MINER PLACER Office Visit [facility] [address] [place] [phone] Zee Clark MD [address] [place], [place] [address] 07/06/2024 1:00 PM MINER PLACER Appointment [facility] Vascular Ultrasound [address] [place], [place] [address] Carol Aguilera MD [address] [place], [place] [phone] 07/06/2024 2:00 PM MINER PLACER Appointment [facility] Non Invasive Cardiology [facility] [address] [place] [address] Carol Aguilera MD [address] [place], [place] [phone] documented as of this encounter Visit Diagnoses Not on filedocumented in this encounter Care Teams Reliner Relationship Specialty Start Date End Date Vivienne Baker MD PCP - General FAMILY PRACTICE 02/08/22 Adriana Hill MD Consulting Physician CARDIOVASCULAR DISEASE 02/08/22 David Craven MD [address] [place] [address] Consulting Physician Thoracic Surgery (Cardiothoracic Vascular Surgery) 06/22/22 Carol Aguilera MD [address] [place] [address] Consulting Physician CARDIOVASCULAR DISEASE 11/17/23 documented as of this encounter
== END 2024-06-24 14:25 | disposition home or self-care (01) ==
LOC: ANHIMG 14:26
DX: Z12.31 Encounter for screening mammogram for malignant neoplasm of breast (principal)
CPT/HCPCS: 77063; 77067

== ENCOUNTER 2024-10-14 09:33 | Outpatient (CLI) | payer OTHER, SELFPAY ==
--- OUTSIDE RECORDS SUMMARY | 2024-10-14 09:55 | XMS_ITS | Referral Summary ---
Author Organization [facility] Address [address] [place] [address] Care Team Providers Care Gl Accountant Name Role Phone Neisha Mcneill MD Primary [...] score greater t farris 400 05/01/2022 Immunizations Immunization Administration Dates Next Due Influenza, Quadrivalent, Spl [...] 5:03 PM CDT Height 172.7 cm (5' 8) 03/29/2023 11:37 AM NURSING ASSISTANT Body Mass Index 27.52 03/29/2023 11:37 AM NURSING ASSISTANT Plan of Treatment Not on file Insurance [place] [address] Care Teams Gl Accountant Relationship Specialty Start Date End Date Neisha Mcneill MD PCP - General Family Medicine 09/02/18
--- OUTSIDE RECORDS SUMMARY | 2024-10-14 09:55 | XMS_ITS | Clinical Summary ---
Author Organization [facility] Building [address] Address [address] [place] [address] Care Team Providers Care Director Learning Services Name Role Phone Neisha Mcneill MD Primary [...] 172.7 cm (5' 8) 03/29/2023 11:37 AM GROCERY CLERK Body Mass Index 27.52 03/29/2023 11:37 AM GROCERY CLERK Plan of Treatment Health Maintenance Due Date Last Done Comments Breast Cancer Screening-Mammogram 1960 Cervical Cancer Screening 1960 Colon Cancer Screening-Colonoscopy 1960 Depression Screening 1960 Hepatitis C Screening 1960 DTaP/Tdap/Td Vaccine (1 - Tdap) 09/18/1971 Hepatitis B Screening 1978 Regular Well Visit/Exam 18-64 1978 Zoster Vaccine (1 of 2) 2010 Influenza Vaccine (Season Ended) 2025 02/06/2019, 02/06/2019, 02/27/2018, Additional history exists Pneumococcal vaccine <65 Aged Out No longer eligible based on patient's age to complete this topic Insurance CHOICE PRF [place] [facility] [place] [address] Care Teams Director Learning Services Relationship Specialty Start Date End Date Neisha Mcneill MD PCP - General Family Medicine 09/02/18
--- NOTE | 2024-11-09 11:36 | WPDSLEEPSTUD ---
Sleep Study Date of Study: 10/14/24 Ordering Provider: Vivienne Billingsley Interpreting Physician: Dejah Lennon DO Sleep Study Type: Split Polysomnogram Height: 1.73 m Weight: 78.925 kg Body Mass Index: 26.4 Neck Circumference (inches): 16 [place]: 3 Reason for Sleep Study Previously diagnosed sleep apnea and was recommended CPAP but never started it. Insurance required a new study. Sleep History The patient is a 64-year-old female that had a sleep study ordered for evaluation of sleep apnea. The patient denies awakening from sleep short of breath. The patient denies awakening at night with heartburn, belching or cough. She denies snoring. She denies having trouble sleeping when she has a cold. She denies waking up gasping for air throughout the night. She denies having breathing problems at night observed by herself or others. She denies sweating excessively at night. She denies having heart palpitations or irregular heartbeats during the night. She denies falling asleep during the day and while driving. He denies sleep paralysis, cataplexy and hypnagogic/ hypnopompic hallucinations. She denies having trouble at school or work due to sleepiness. She denies feeling afraid of going to sleep. She denies having nightmares. She denies remembering her dreams. She frequently has thoughts racing through her mind. She denies feeling sad or depressed. She occasionally has anxiety. She denies having muscular tension. She frequently notices parts of her body jerk. She rarely has crawling and aching feelings in her legs.She denies having leg pain during the night. She denies grinding her teeth during sleep and denies awakening with morning jaw pain. She denies being bothered by pain during the day denies being awakened by pain during the night. She rarely wakes up feeling stiff morning. She rarely wakes up with sore or achy muscles. She denies waking up with pain in the neck, other joints. She goes to bed at 10:00 p.m. every night. It takes her 60-90 minutes to fall asleep. She wakes up 2-3 times throughout the night to urinate and is able to fall back asleep within 30 minutes. She wakes up at 5:00 a.m. on weekdays and between 5-6 a.m. on the weekends. She typically gets 4-5 hours of sleep per night. She will stay in bed for 20 minutes after Waking up in the morning. She currently lives alone. She denies consuming any caffeinated beverages within 2 hours of bedtime. She denies engaging in physical exercise before bedtime. She will occasionally read before falling asleep. She will watch television before falling asleep. She denies taking naps in afternoon or the evening. She consumes 2 caffeinated beverages every morning. She consumes 2 alcoholic beverages whenever she drinks socially. She denies tobacco and recreational drug use. [facility] Past Medical History Medical History Trigger finger, left ring finger Subacromial impingement of right shoulder Degenerative arthritis of left knee Neuropathy in diabetes Charcot foot due to diabetes mellitus right 2nd and 3rd MTP joints Anxiety Hypertension Type 2 diabetes mellitus with diabetic neuropathy, without long-term current use of insulin Vitamin B12 deficiency Vitamin D deficiency Surgical History Surgical History History of quadruple bypass History of medial meniscus repair of left knee History of Achilles tendon repair Family History Family History Sibling Diabetes mellitus Family history of malignant neoplasm of breast Acute myocardial infarction Family history of malignant neoplasm of breast in first degree relative Cerebrovascular accident Heart disease Hypertension Father Family history of malignant neoplasm of urinary bladder, Onset Age: 90 Family history of chronic obstructive pulmonary disease, Onset Age: 90 Heart disease Mother Family history of malignant neoplasm of breast, Onset Age: 89 Family history of malignant neoplasm of breast in first degree relative, Onset Age: 89 Social History Social History Smoking status: Never smoker Second hand tobacco smoke exposure: Yes (childhood) Alcohol intake: current Alcohol use details: rare/occasional use Substance use: never Substance use type: does not use Living arrangements: with friend(s) Occupation/Education: retired Gender identity (if verbalized by the patient): Female Spiritual care concerns: No Medications Home Medications ?Medication ?Instructions ?Recorded ?Confirmed ?Type blood sugar diagnostic (OneTouch #100 ea 05/27/19 11/03/24 Rx Ultra Blue Test Strip) cyanocobalamin (vitamin B-12) 1,000 mcg PO DAILY 07/07/19 11/03/24 History 1,000 mcg capsule cholecalciferol (vitamin D3) 25 See Rx Instructions .Route 10/27/19 11/03/24 Rx mcg (1,000 unit) tablet (Vitamin .COMPLEX #90 tabs D3) metformin 500 mg tablet See Rx Instructions .Route 11/29/20 11/03/24 Rx .COMPLEX #810 tabs bupropion HCl 150 mg 24 hr tablet, See Rx Instructions .Route 10/12/21 11/03/24 Rx extended release .COMPLEX #180 tabs hydrochlorothiazide 12.5 mg tablet See Rx Instructions .Route 01/16/22 11/03/24 Rx .COMPLEX #90 tabs losartan 100 mg tablet 100 mg PO DAILY #90 tabs 01/16/22 11/03/24 Rx rosuvastatin 40 mg tablet 40 mg PO DAILY 03/20/23 11/03/24 History Sleep Procedure A full night split study using the Lenda multi-channel system recorded the standard physiologic parameters including EEG, EOG, submentalis EMG, anterior tibialis EMG, EKG, body position, nasal and oral airflow using nasal pressure sensor and thermistor.? Respiratory parameters of chest and abdominal movements were recorded with Respiratory Inductance Plethysmography belts. Oxygen saturation was recorded by pulse oximetry. Video monitoring was also performed. Sleep stages, periodic limb movements, and EEG arousals were scored in 30 second epochs according to the criteria of the AASM Scoring Manual. The Apnea-Hypopnea Index was calculated using CMS guidelines for definition of hypopnea with 4% O2 desaturations while scoring respiratory events. Sleep Architecture During the diagnostic portion of the study, the total recording time was 196.9 minutes. The total sleep time was 139.0 minutes. Sleep latency was 14.4 minutes.? REM latency was 118.0 minutes. Sleep Efficiency was 70.6%. The patient had 14 awakenings for an awakening index of 6.0. Wake after sleep onset time was 43.5 minutes. The patient spent 26.5 minutes, 19.1% of total sleep time in Stage N1. The patient spent 85.5 minutes, 61.5% in Stage N2. The patient spent 0.5 minutes, 0.4% in Stage N3. The patient spent 26.5 minutes, 19.1% in Stage REM sleep. At 12:26:28 AM the patient was placed on PAP treatment and was titrated at pressures ranging from 5 cm H20 up to 9 cm H20. During the treatment portion of the study, the total recording time was 289.6 minutes.? The total sleep time was 186.5 minutes. Sleep latency was 11.5 minutes. REM latency was 87.0 minutes. Sleep Efficiency was 64.4%. Wake after Sleep Onset time was 92.0 minutes. The patient spent 58.0 minutes, 31.1% of total sleep time in Stage N1. The patient spent 116.5 minutes, 62.5% in Stage N2. The patient spent 0.5 minutes, 0.3% in Stage N3. The patient spent 11.5 minutes, 6.2% in Stage REM. Respiratory Analysis During the diagnostic portion of the study, the patient had 13 hypopneas for an overall Apnea Hypopnea Index of 5.6 events per hour. The REM Apnea Hypopnea Index was 6.8. The NREM Apnea Hypopnea Index was 5.3. The patient had a Central Apnea Hypopnea Index of 0. There was no evidence of Franco-Gray Respirations. During the treatment portion of the study, the patient had 12 hypopneas for an overall Apnea Hypopnea Index of 3.9 events per hour. The REM Apnea Hypopnea Index was 0. The NREM Apnea Hypopnea Index was 4.1. The patient had a Central Apnea Hypopnea Index of 0. There was no evidence of Franco-Gray Respirations. The patient was started on CPAP 5 cm H2O and was titrated to CPAP 9 cm H2O due to hypopneas. The patient was able to fall asleep starting on CPAP 5 cm H2O. The patient was able to achieve REM sleep starting on CPAP 5 cm H2O. The patient was able to achieve a residual AHI less than 5 with both NREM and REM sleep on CPAP 5 cm H2O. On CPAP 5 cm H2O, the patient spent 82 minutes in NREM sleep and 11.5 minutes in REM sleep with 6 hypopneas, resulting in an AHI of 3.9. The patient had a sleep efficiency of 81.7% on this pressure setting. Arousals During the diagnostic portion of the study, there were a total of 137 arousals for an arousal index of 59.1.? There were 7 respiratory arousals for an index of 3.0. There were 104 periodic limb movement arousals for an index of 44.9.? There were 6 isolated limb movement arousals for an index of 2.6. There were 23 spontaneous arousals for an index of 9.9. During the treatment portion of the study, there were a total of 191 arousals for an index of 61.4.? There were 2 respiratory arousals for an index of 0.6. There were 109 periodic limb movement arousals for an index of 35.1.? There were 19 isolated limb movement arousals for an index of 6.1. There were 61 spontaneous arousals for an index of 19.6. Periodic Limb Movements During the diagnostic portion of the study, the patient had 19 isolated limb movements with an index of 8.2. The patient had 359 periodic limb movements with an index of 155.0, which is elevated (normal < 15). The patient had a total of 378 limb movements with a total limb movement index of 163.2. During the treatment portion of the study, the patient had 34 isolated limb movements with an index of 10.9. The patient had 242 periodic limb movements with an index of 77.9, which is elevated (normal < 15). The patient had a total of 276 limb movements with a total limb movement index of 88.8. Oximetry Data During the diagnostic portion of the study, the patient had an average oxygen saturation of 94.5% in wake with a minimum oxygen saturation of 90% and a maximum oxygen saturation of 98%. The patient had an average oxygen saturation of 93.1% in sleep with a minimum oxygen saturation of 88.0% and a maximum oxygen saturation of 97.0%. The patient had 17 oxygen desaturations resulting in an Oxygen Desaturation Index of 7.3. The patient spent 0.2 minutes, 0.1% of total sleep time with an oxygen saturation less than 88%. During the treatment portion of the study, the patient had an average oxygen saturation of 95.9% in wake with a minimum oxygen saturation of 90.0% and a maximum oxygen saturation of 100.0%. The patient had an average oxygen saturation of 95.2% in sleep with a minimum oxygen saturation of 90.0% and a maximum oxygen saturation of 100.0%. The patient had 18 oxygen desaturations resulting in an Oxygen Desaturation Index of 5.8. The patient spent 0 minutes of total sleep time with an oxygen saturation less than 88%. Snoring Profile Mild snoring was present intermittently in the baseline portion of the study. The snoring resolved once the patient was started on PAP therapy. Cardiac Profile The EKG lead showed normal sinus rhythm. No arrhythmias or PVCs were seen. During the diagnostic portion of the study, the average pulse rate was 77.0 bpm.? The minimum pulse rate was 64.0 bpm. The maximum pulse rate was 90.0 bpm. During the treatment portion of the study, the average pulse rate was 71.4 bpm.? The minimum pulse rate was 58.0 bpm. The maximum pulse rate was 86.0 bpm. EEG Profile No signs of seizure activity seen. Assessment and Plan Assessment and Plan (1) BLU (obstructive sleep apnea): Code(s): G47.33 - Obstructive sleep apnea (adult) (pediatric) Status: Acute Assessment and Plan: In the baseline portion of the study, the patient had an overall AHI of 5.6 with desaturation down to 88%. This is consistent with mild sleep apnea. Due to the patient's hypertension, she qualifies for treatment. The patient was started on CPAP 5 cm H2O and was titrated to CPAP 9 cm H2O due to hypopneas. I recommend that the patient be prescribed CPAP 5 cm H2O, size medium Resmed N30i AirTouch nasal mask, CPAP filters/tubing and heated humidity. This should be used with all episodes of sleep.? Compliance should be reviewed within 31-90 days of starting therapy for usage greater than 4 hours per night greater than 70% of the nights. The patient should be asked about symptoms such as?excessive daytime sleepiness, quality of sleep, decreased nocturia, increased?mental functioning such as memory, mood, and concentration. (2) PLMD (periodic limb movement disorder): Code(s): G47.61 - Periodic limb movement disorder Status: Acute Assessment and Plan: The patient had a significant number of limb movements during the study with the majority being periodic in nature. Approximately 1/3 of the periodic limb movements caused arousals in the patient's sleep. The patient's sleep history is not overly suggestive of Restless Leg Syndrome. I recommend that the patient have a serum ferritin drawn for evaluation of iron deficiency anemia. If the patient has a serum ferritin less than 75 ng/mL, I recommend starting a daily iron supplement and a Vitamin C supplement for better absorption. If the serum ferritin is greater than 75 ng/mL, I recommend starting a dopamine agonist and titrating the dose until symptoms resolve. There are nonpharmacological methods to treat limb movements including daily exercise, stretching calf muscles before bed, avoiding excessive amounts of caffeine and alcohol, vitamin B supplementation, magnesium lotion massaged into legs before bed, and use of a weighted blanket. Data The data obtained during this sleep study is adequate for interpretation. Certification This sleep study has been reviewed by a board certified sleep medicine physician.
[2024-11-09 11:37] VITALS: BMI 26.4
== END 2024-10-15 05:55 | disposition home or self-care (01) ==
DX: G47.33 Obstructive sleep apnea (adult) (pediatric) (principal); G47.61 Periodic limb movement disorder
CPT/HCPCS: 95811